=== PATIENT | female | born 1970 | race Caucasian/White ===

== ENCOUNTER 2023-06-11 10:55 | Emergency (ER) | payer BC, SELFPAY ==
[2023-06-11] VITALS (12 sets, daily range): BP systolic 133; BP diastolic 84; PULSE 51–63; RESP 13–20; TEMP 36.4; O2SAT 98; BMI 23.4
--- NOTE | 2023-06-11 11:17 | ECG_ITS ---
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
--- NOTE | 2023-06-11 11:18 | ED.GENADUL1 ---
HPI - General Adult General Chief complaint: Neuro Symptoms/Deficit Stated complaint: NUMBNESS IN LEFT ARM, FATIGUE Time Seen by Provider: 06/11/23 11:12 Source: patient Mode of arrival: walk-in Limitations: no limitations History of Present Illness HPI narrative: 52-year-old female presented for left arm pain. She's been fatigued for the last week and then beginning this morning she had a tightness in her left upper arm like when she has a tourniquet on it. No injury and she doesn't have any weakness. No chest pain or pressure. No back pain or shortness of breath. She has no personal history of heart disease but it runs in her family. Related Data Home Medications Medication Instructions Recorded Confirmed No Known Home Medications 06/11/23 06/11/23 Allergies Allergy/AdvReac Type Severity Reaction Status Date / Time Penicillins Allergy Severe Verified 06/11/23 11:07 avalox Allergy Severe Vomiting Uncoded 06/11/23 11:08 Review of Systems ROS Narrative A ten point review of systems is negative except as noted above. PFSH PFS Social History Smoking status: Never smoker Exam Narrative Exam Narrative: Nurses note and vital signs reviewed and patient is not hypoxic. General: The patient appears well and in no apparent distress. Patient is resting comfortably on cart. Skin: Warm, dry, no pallor noted. There is no rash noted. Head: Normocephalic, atraumatic Eye: Normal conjunctiva, no drainage Ears, Nose, Mouth, and Throat: oral mucosa is moist. Nares patent. Cardiovascular: Regular Rate and Rhythm Respiratory: Patient is in no distress, no accessory muscle use, lungs are clear to auscultation, no wheezing, rales or rhonchi Back: non-tender GI: nontender Musculoskeletal: the left arm is examined. No bruising or swelling or rash. Radial pulse 2+. Hand grasp, biceps, and triceps strength is all intact. Neurological: A&O, normal speech Psychiatric: Cooperative Constitutional Vital Signs, click to edit/add: Last Vital Signs Temp 97.6 F 06/11/23 11:04 Resp 16 06/11/23 11:04 BP 133/84 06/11/23 11:04 Pulse Ox 98 06/11/23 11:04 O2 Del Method Room Air 06/11/23 11:04 Course Vital Signs Vital signs: Vital Signs Temperature 97.6 F 10/05/23 11:04 Respiratory Rate 16 06/11/23 11:04 Blood Pressure 133/84 06/11/23 11:04 Pulse Oximetry 98 06/11/23 11:04 Oxygen Delivery Method Room Air 06/11/23 11:04 Temperature 97.6 F 06/11/23 11:04 Respiratory Rate 16 06/11/23 11:04 Blood Pressure 133/84 06/11/23 11:04 Pulse Oximetry 98 06/11/23 11:04 Oxygen Delivery Method Room Air 06/11/23 11:04 Medical Decision Making MDM Narrative Medical decision making narrative: EKG shows no acute findings and two troponins are negative. Cause of her arm pain is uncertain. At this point I do not suspect acute coronary syndrome. Treatment diagnosis and follow-up were discussed with the patient. Differential Diagnosis Differential Diagnosis: muscle strain, heart disease, anxiety Lab Data Lab results reviewed: Yes I reviewed the patient's lab results Labs: Lab Results 06/11/23 06/11/23 06/11/23 Range/Units 11:25 11:30 12:25 WBC 6.2 (4.0-11.0) 10^3/uL RBC 4.39 (4.20-5.40) 10^6/uL Hgb 13.9 (12.0-16.0) g/dL Hct 41.6 (36.0-48.0) % MCV 94.8 (81.0-99.0) fL MCH 31.7 (26.7-34.0) pg MCHC 33.4 (29.9-35.2) g/dL RDW 12.6 (11.0-15.0) % Plt Count 246 (150-450) 10^3/uL MPV 9.3 L (9.5-13.5) fL Neut % (Auto) 58.6 (43.0-75.0) % Lymph % (Auto) 30.0 (20.5-60.0) % [facility] % (Auto) 8.3 (1.7-12.0) % Eos % (Auto) 2.1 (0.9-7.0) % Baso % (Auto) 0.8 (0.2-2.0) % Neut # (Auto) 3.6 (1.4-6.5) 10^3/uL Lymph # (Auto) 1.9 (1.2-3.8) 10^3/uL [facility] # (Auto) 0.5 (0.3-0.8) 10^3/uL Eos # (Auto) 0.1 (0.0-0.7) 10^3/uL Baso # (Auto) 0.1 (0.0-0.1) 10^3/uL Abs Immat Gran (auto) 0.01 (0.00-0.03) 10^3/uL Imm/Tot Granulo (auto) 0.2 (0.0-0.5) % PT (9.0-11.6) sec INR APTT (22.3-36.2) sec Sodium 140 (136-145) mmol/L Potassium 3.8 (3.5-5.1) mmol/L Chloride 104 (98-107) mmol/L Carbon Dioxide 28.8 (21.0-32.0) mmol/L Anion Gap 11.0 BUN 20.0 H (7.0-18.0) mg/dL Creatinine 0.73 (0.55-1.02) mg/dL Est GFR ( Amer) >60 (>=60) Est GFR (Non-Af Amer) >60 (>=60) BUN/Creatinine Ratio 27.4 Glucose 94 (74-106) mg/dL Calcium 9.6 (8.5-10.1) mg/dL Troponin I High Sens 4.7 8.5 (4.0-51.3) pg/mL Urine Color Lt. yellow (YELLOW) Urine Clarity Clear (CLEAR) Urine pH 6.0 (5.0-9.0) Ur Specific Sharon 1.015 (1.005-1.025) Urine Protein Negative (NEG/TRACE) mg/dL Urine Glucose (UA) Negative (NEGATIVE) mg/dL Urine Ketones Negative (NEGATIVE) mg/dL Urine Occult Blood Negative (NEGATIVE) Urine Nitrite Negative (NEGATIVE) Urine Bilirubin Negative (NEGATIVE) Urine Urobilinogen 0.2 (0.2-1.0) EU/dL Ur Leukocyte Esterase Negative (NEGATIVE) Urine RBC None seen (0-2) #/HPF Urine WBC None seen (NONE SEEN) #/HPF Ur Squamous Epith Cells Rare (NONE/RARE) #/LPF Urine Crystals None seen (None Seen) #/HPF Urine Bacteria None seen (NONE SEEN) #/HPF Urine Casts None seen (NONE SEEN) #/LPF Urine Mucus None seen (NONE SEEN) 06/11/23 Range/Units 12:52 WBC (4.0-11.0) 10^3/uL RBC (4.20-5.40) 10^6/uL Hgb (12.0-16.0) g/dL Hct (36.0-48.0) % MCV (81.0-99.0) fL MCH (26.7-34.0) pg MCHC (29.9-35.2) g/dL RDW (11.0-15.0) % Plt Count (150-450) 10^3/uL MPV (9.5-13.5) fL Neut % (Auto) (43.0-75.0) % Lymph % (Auto) (20.5-60.0) % [facility] % (Auto) (1.7-12.0) % Eos % (Auto) (0.9-7.0) % Baso % (Auto) (0.2-2.0) % Neut # (Auto) (1.4-6.5) 10^3/uL Lymph # (Auto) (1.2-3.8) 10^3/uL [facility] # (Auto) (0.3-0.8) 10^3/uL Eos # (Auto) (0.0-0.7) 10^3/uL Baso # (Auto) (0.0-0.1) 10^3/uL Abs Immat Gran (auto) (0.00-0.03) 10^3/uL Imm/Tot Granulo (auto) (0.0-0.5) % PT 11.4 (9.0-11.6) sec INR 1.08 APTT 32.5 (22.3-36.2) sec Sodium (136-145) mmol/L Potassium (3.5-5.1) mmol/L Chloride (98-107) mmol/L Carbon Dioxide (21.0-32.0) mmol/L Anion Gap BUN (7.0-18.0) mg/dL Creatinine (0.55-1.02) mg/dL Est GFR ( Amer) (>=60) Est GFR (Non-Af Amer) (>=60) BUN/Creatinine Ratio Glucose (74-106) mg/dL Calcium (8.5-10.1) mg/dL Troponin I High Sens (4.0-51.3) pg/mL Urine Color (YELLOW) Urine Clarity (CLEAR) Urine pH (5.0-9.0) Ur Specific Sharon (1.005-1.025) Urine Protein (NEG/TRACE) mg/dL Urine Glucose (UA) (NEGATIVE) mg/dL Urine Ketones (NEGATIVE) mg/dL Urine Occult Blood (NEGATIVE) Urine Nitrite (NEGATIVE) Urine Bilirubin (NEGATIVE) Urine Urobilinogen (0.2-1.0) EU/dL Ur Leukocyte Esterase (NEGATIVE) Urine RBC (0-2) #/HPF Urine WBC (NONE SEEN) #/HPF Ur Squamous Epith Cells (NONE/RARE) #/LPF Urine Crystals (None Seen) #/HPF Urine Bacteria (NONE SEEN) #/HPF Urine Casts (NONE SEEN) #/LPF Urine Mucus (NONE SEEN) Imaging Data Chest x-ray: Radiologist's impression: Procedure: XR chest 1V EXAM: XR chest 1V at 1205 hours HISTORY: arm and chest pain COMPARISON: 10/04/2013 TECHNIQUE: AP upright portable chest x-ray FINDINGS: The heart is not enlarged and the vasculature is not distended. No acute infiltrate, effusion or pneumothorax is identified. The osseous structures are grossly intact. IMPRESSION: No acute infiltrate or evidence of cardiac decompensation. The overall appearance of the chest is unchanged. Electronically authenticated by: NANCY HYMAN Date: 06/11/2023 12:24 Discharge Plan Discharge Chief Complaint: Neuro Symptoms/Deficit Clinical Impression: Arm pain, left Patient Disposition: Home, Self-Care Time of Disposition Decision: 14:01 Condition: Good Mode of Transportation: Private Vehicle Prescriptions / Home Meds: No Action No Known Home Medications Instructions: Arm Pain (ED) Stand Alone Forms: Portal Instructions Referrals: CLEVELAND MORIN APRN [Primary Care Provider] - 1 week
[2023-06-11 11:39] LABS: Basophils Absolute Auto 0.1 10^3/uL (0.0-0.1); Basophils Percent Auto 0.8 % (0.2-2.0); Eosinophils Absolute Auto 0.1 10^3/uL (0.0-0.7); Eosinophils Percent Auto 2.1 % (0.9-7.0); Hematocrit 41.6 % (36.0-48.0); Hemoglobin 13.9 g/dL (12.0-16.0); Immature Granulocytes Abs Auto 0.01 10^3/uL (0.00-0.03); Immature Granulocytes Pct Auto 0.2 % (0.0-0.5); Lymphocytes Absolute Auto 1.9 10^3/uL (1.2-3.8); Mean Corpuscular HGB Conc 33.4 g/dL (29.9-35.2); Mean Corpuscular Hemoglobin 31.7 pg (26.7-34.0); Mean Corpuscular Volume 94.8 fL (81.0-99.0); Mean Platelet Volume 9.3 fL (9.5-13.5); Monocytes Absolute Auto 0.5 10^3/uL (0.3-0.8); Monocytes Percent Auto 8.3 % (1.7-12.0); Neutrophils Absolute Auto 3.6 10^3/uL (1.4-6.5); Neutrophils Percent Auto 58.6 % (43.0-75.0); Platelet Count 246 10^3/uL (150-450); Red Blood Count 4.39 10^6/uL (4.20-5.40); Red Cell Distribution Width 12.6 % (11.0-15.0); White Blood Count 6.2 10^3/uL (4.0-11.0)
[2023-06-11 11:40] LABS: Bilirubin Urine NEGATIVE (NEGATIVE); Blood Urine NEGATIVE (NEGATIVE); Clarity Urine CLEAR (CLEAR); Color Urine LT. YELLOW (YELLOW); Glucose Urine UA NEGATIVE (NEGATIVE); Ketones Urine NEGATIVE (NEGATIVE); Leukocyte Esterase Urine NEGATIVE (NEGATIVE); Nitrite Urine NEGATIVE (NEGATIVE); Protein Urine NEGATIVE (NEG/TRACE); Specific Gravity Urine 1.015 (1.005-1.025); Urobilinogen Urine 0.2 EU/dL (0.2-1.0)
[2023-06-11 11:45] LABS: WBC Urine NONE SEEN #/HPF (NONE SEEN)
[2023-06-11 11:46] LABS: Bacteria Urine NONE SEEN #/HPF (NONE SEEN); Cast Seen? NONE SEEN #/LPF (NONE SEEN); Crystals Seen? None Seen #/HPF (None Seen); Mucus Urine NONE SEEN (NONE SEEN); RBC Urine NONE SEEN #/HPF (0-2); Squamous Epithelial Cell Urine RARE #/LPF (NONE/RARE)
[2023-06-11 12:05] LABS: Carbon Dioxide 28.8 mmol/L (21.0-32.0); Chloride 104 mmol/L (98-107); Potassium 3.8 mmol/L (3.5-5.1); Sodium 140 mmol/L (136-145)
--- NOTE | 2023-06-11 12:05 | XR_ITS ---
The [address] [address] Patient Name: MANDO LEE MRN: [id number] date: 1970 Sex: F Assigned Patient Location: ER Current Patient Location: ER Accession/Order Number: [id number] Exam Date: 06/11/2023 12:00 Report Date: 06/11/2023 12:24 At the request of: RAHEEM MIGUEL Procedure: XR chest 1V EXAM: XR chest 1V at 1205 hours HISTORY: arm and chest pain COMPARISON: 10/04/2013 TECHNIQUE: AP upright portable chest x-ray FINDINGS: The heart is not enlarged and the vasculature is not distended. No acute infiltrate, effusion or pneumothorax is identified. The osseous structures are grossly intact. XR/XR chest 1V IMPRESSION: No acute infiltrate or evidence of cardiac decompensation. The overall appearance of the chest is unchanged. Electronically authenticated by: NANCY HYMAN Date: 06/11/2023 12:24
[2023-06-11 12:06] LABS: BUN Creatinine Ratio 27.4; Calcium 9.6 mg/dL (8.5-10.1); Estimated GFR (African America >60 (>=60); Estimated GFR (Non-African Ame >60 (>=60); Glucose 94 mg/dL (74-106); Troponin I High Sensitivity 4.7 pg/mL (4.0-51.3)
[2023-06-11 13:20] LABS: INR 1.08; Partial Thromboplastin Time 32.5 sec (22.3-36.2); Prothrombin Time 11.4 sec (9.0-11.6)
[2023-06-11 13:34] LABS: Troponin I High Sensitivity 8.5 pg/mL (4.0-51.3)
== END 2023-06-11 14:19 | disposition home or self-care (01) ==
PROVIDERS: Emergency Provider Emergency Medicine; PCP Nurse Practitioner Primary Care
DX: M79.602 Pain in left arm (principal)
CPT/HCPCS: 36415; 71045; 80048; 81001; 84484; 85025; 85610; 85730; 93005; 99285

== ENCOUNTER 2023-06-12 09:21 | Outpatient (OUT) | payer BC, SELFPAY ==
[2023-06-12 10:21] LABS: Basophils Percent Auto 0.7 % (0.2-2.0); Eosinophils Absolute Auto 0.1 10^3/uL (0.0-0.7); Eosinophils Percent Auto 2.1 % (0.9-7.0); Hematocrit 40.9 % (36.0-48.0); Hemoglobin 13.3 g/dL (12.0-16.0); Immature Granulocytes Abs Auto 0.01 10^3/uL (0.00-0.03); Immature Granulocytes Pct Auto 0.2 % (0.0-0.5); Lymphocytes Absolute Auto 1.3 10^3/uL (1.2-3.8); Lymphocytes Percent Auto 22.9 % (20.5-60.0); Mean Corpuscular HGB Conc 32.5 g/dL (29.9-35.2); Mean Corpuscular Hemoglobin 31.1 pg (26.7-34.0); Mean Corpuscular Volume 95.8 fL (81.0-99.0); Mean Platelet Volume 9.6 fL (9.5-13.5); Monocytes Absolute Auto 0.4 10^3/uL (0.3-0.8); Monocytes Percent Auto 7.2 % (1.7-12.0); Neutrophils Absolute Auto 3.8 10^3/uL (1.4-6.5); Neutrophils Percent Auto 66.9 % (43.0-75.0); Platelet Count 264 10^3/uL (150-450); Red Blood Count 4.27 10^6/uL (4.20-5.40); Red Cell Distribution Width 12.6 % (11.0-15.0); White Blood Count 5.7 10^3/uL (4.0-11.0)
[2023-06-12 10:32] LABS: Alanine Aminotransferase 35 U/L (14-59); Albumin Level 3.6 g/dL (3.4-5.0); Alkaline Phosphatase 95 U/L (46-116); Anion Gap 9.6; Aspartate Amino Transferase 26 U/L (15-37); BUN Creatinine Ratio 22.6; Bilirubin Total 0.6 mg/dL (0.2-1.0); Calcium 9.2 mg/dL (8.5-10.1); Carbon Dioxide 31.2 mmol/L (21.0-32.0); Chloride 105 mmol/L (98-107); Estimated GFR (African America >60 (>=60); Estimated GFR (Non-African Ame >60 (>=60); Globulin 3.5 g/dL; Glucose 88 mg/dL (74-106); Potassium 3.8 mmol/L (3.5-5.1); Sodium 142 mmol/L (136-145); Thyroid Stimulating Hormone 1.302 uIU/mL (0.358-3.740); Total Protein 7.1 g/dL (6.4-8.2)
[2023-06-12 10:44] LABS: Erythrocyte Sedimentation Rate 17 mm/hr (<=30)
[2023-06-13 04:07] LABS: HCV Ab Non Reactive (Non Reactive); HIV Ab/p24 Ag Screen Non Reactive (Non Reactive)
== END 2023-06-12 09:22 | disposition home or self-care (01) ==
LOC: LAB 09:22
PROVIDERS: PCP Nurse Practitioner Primary Care; Visit Provider Nurse Practitioner Primary Care
DX: R53.83 Other fatigue (principal); Z11.59 Encounter for screening for other viral diseases; Z11.4 Encounter for screening for human immunodeficiency virus [HIV]
CPT/HCPCS: 36415; 80053; 82607; 82746; 84443; 85025; 85652; 86803; 87389

== ENCOUNTER 2024-01-21 09:14 | Outpatient (OUT) | payer BC, SELFPAY ==
[2024-01-21 10:13] LABS: Hematocrit 40.5 % (36.0-48.0); Hemoglobin 13.2 g/dL (12.0-16.0); Mean Corpuscular HGB Conc 32.6 g/dL (29.9-35.2); Mean Corpuscular Hemoglobin 30.3 pg (26.7-34.0); Mean Corpuscular Volume 93.1 fL (81.0-99.0); Mean Platelet Volume 9.5 fL (9.5-13.5); Platelet Count 225 10^3/uL (150-450); Red Blood Count 4.35 10^6/uL (4.20-5.40); Red Cell Distribution Width 12.7 % (11.0-15.0); White Blood Count 6.2 10^3/uL (4.0-11.0)
[2024-01-21 10:38] LABS: Percent Iron Saturation 45.6 %
[2024-01-21 10:46] LABS: Alanine Aminotransferase 25 U/L (14-59); Albumin Level 3.6 g/dL (3.4-5.0); Alkaline Phosphatase 96 U/L (46-116); Anion Gap 10.4; Aspartate Amino Transferase 16 U/L (15-37); BUN Creatinine Ratio 19.8; Bilirubin Total 0.7 mg/dL (0.2-1.0); Calcium 8.9 mg/dL (8.5-10.1); Carbon Dioxide 29.6 mmol/L (21.0-32.0); Chloride 104 mmol/L (98-107); Estimated GFR (African America >60 (>=60); Estimated GFR (Non-African Ame >60 (>=60); Globulin 3.7 g/dL; Glucose 90 mg/dL (74-106); Sodium 140 mmol/L (136-145); TSH W/ REFLEX FT4 1.666 uIU/mL (0.358-3.740); Total Protein 7.3 g/dL (6.4-8.2)
== END 2024-01-21 09:15 | disposition home or self-care (01) ==
LOC: LAB 09:17
PROVIDERS: PCP Nurse Practitioner; Visit Provider Nurse Practitioner
DX: R52 Pain, unspecified (principal); R53.83 Other fatigue
CPT/HCPCS: 36415; 80053; 83540; 83550; 84443; 85027

== ENCOUNTER 2024-01-29 06:58 | Outpatient (OUT) | payer BC, SELFPAY ==
--- NOTE | 2024-01-29 | MM_ITS ---
Patient Name: MANDO LEE MR#: [id number] : 1970 Exam Date: 01/29/2024 Ordering Doctor: Noreen Staton RADIOLOGY REPORT PROCEDURE: MM TOMOSYNTHESIS SCREENING BI COMPARISON: MG MAMM SCREEN 3D NILA CAD, 12/12/2022. MG MAMM SCREEN NILA W CAD, 10/28/2018. MG MAMM SCREEN NILA W CAD, 02/03/2017. MAMMO NILA SCREEN, 01/02/2016. INDICATIONS: Nila Screening Mammogram Calculator Name NCI Breast Cancer Risk Assessment Tool 5 Year Breast Cancer Risk 2.30% Lifetime Breast Cancer Risk 15.50% Personal Breast Cancer No Personal Ovarian Cancer No Treatments None Family Cancers Mother with breast cancer at age 68; Mother with uterine cancer at age 24. LOCATION: [facility] BREAST COMPOSITION: The breasts are heterogeneously dense,which may obscure small masses. FINDINGS: DIAGNOSTIC CATEGORY 1--NEGATIVE. RIGHT BREAST: No significant suspicious finding. No significant change has occurred. LEFT BREAST: No significant suspicious finding. No significant change has occurred. RECOMMENDATIONS: ROUTINE MAMMOGRAM AND CLINICAL EVALUATION IN 12 MONTHS. PLEASE NOTE: A NORMAL MAMMOGRAM DOES NOT EXCLUDE THE POSSIBILITY OF BREAST CANCER. A CLINICALLY SUSPICIOUS PALPABLE LUMP SHOULD BE BIOPSIED. Dictated by: Jefry Oviedo M.D. on 01/29/2024 at 08:08 Approved by: Jefry Oviedo M.D. on 01/29/2024 at 08:34
--- OUTSIDE RECORDS SUMMARY | 2024-01-29 07:02 | XMS_ITS | CCD ---
Author Organization [facility] CliniSymn Care Team Providers Care Heeler Machine Name Role Phone JJ, DOCTOR Admitting Unavailable MISC, DR RODRIGUEZ Attending Unavailable MISC, DR RODRIGUEZ Consulting Unavailable Jefry Oviedo Consulting Unavailable Problems Problem Classification Problem Date Documented Da te Episodic/Chronic Other screening for suspected conditions (not mental disorders or infectious disease) (4 sources) Encounter for screening mammogram for malignant neoplasm of breast; Translations: [ENC SCR MAMMO MALIG NEOPLASM BREAST] Onset: 12-12-2022 Episodic Residual codes; unclassified (1 source) Family history of malignant neoplasm of breast; Translations: [FAMILY HX MALIG NEOPLASM OF BREAST] Onset: 12-21-2022 Episodic Residual codes; unclassified (1 source) Family history of malignant neoplasm of other organs or systems; Translations: [FAM HX MALIG NEOPLASM OTH ORGN/SYS] Onset: 12-21-2022 Episodic Results Test Name Value Interpretation Reference Range Facil ity MG MAMM SCREEN 3D NILA CADon 12-12-2022 MG MAMM SCREEN 3D NILA CAD Patient: MANDO LEE. Exam Date: 12/12/2022 : 1970 Gender:F Ordering : GLORIA VILLEDA D.O. Admission #: [id number] Family : Order #: [id number] CLICK HERE TO VIEW EXAM RADIOLOGY REPORT PROCEDURE: MAMMOGRAM SCREENING 3D BILATERAL CAD COMPARISON: MG MAMM SCREEN NILA W CAD, 02/03/2017. MG MAMM SCREEN NILA W CAD, 01/02/2016. MG MAMM SCREEN NILA W CAD, 04/02/2013. MG MAMM SCREEN NILA W CAD, 10/28/2018. INDICATIONS: Screening mammography Calculator Name NCI Breast Cancer Risk Assessment Tool 5 Year Breast Cancer Risk 2.20% Lifetime Breast Cancer Risk 15.80% Personal Breast Cancer No Personal Ovarian Cancer No Treatments None Family Cancers Mother with breast cancer at age 68; Mother with uterine cancer at age 24. LOCATION: [facility] BREAST COMPOSITION: Heterogeneously dense,which may obscure small masses. FINDINGS: DIAGNOSTIC CATEGORY 1--NEGATIVE. RIGHT BREAST: No significant suspicious finding. No significant change has occurred. LEFT BREAST: No significant suspicious finding. No significant change has occurred. RECOMMENDATIONS: ROUTINE MAMMOGRAM AND CLINICAL EVALUATION IN 12 MONTHS. PLEASE NOTE: A NORMAL MAMMOGRAM DOES NOT EXCLUDE THE POSSIBILITY OF BREAST CANCER. A CLINICALLY SUSPICIOUS PALPABLE LUMP SHOULD BE BIOPSIED. Dictated by: Jefry Oviedo M.D. on 12/12/2022 at 12:30 Approved by: Jefry Oviedo M.D. on 12/12/2022 at 12:56 Normal [facility] Complete Blood Counton 10-14 Erythrocyte distribution width (RBC) [Ratio] 13.0 % Normal 11.0-15.0 [facility] Pulper Operator Comment on above: Performed By: #### C BC, CMP, LIPD #### [facility] [address] [place], [place] [id number] Hematocrit (Bld) [Volume fraction] 41.4 % Normal 35.0-47.0 [facility] Specialist Comment on above: Performed By: #### C BC, CMP, LIPD #### [facility] [address], [place] [id number] Hemoglobin (Bld) [Mass/Vol] 13.6 g/dL Normal 11.6-15.5 [facility] Comment on above: Performed By: #### C BC, CMP, LIPD #### [facility] [address] [place], [place] [id number] MCH (RBC) [Entitic mass] 30.6 pg Normal 27.0-33.0 [facility] Comment on above: Performed By: #### C BC, CMP, LIPD #### [facility] [address] [facility] [place] [id number] MCHC (RBC) [Mass/Vol] 32.9 g/dL Normal 32.0-36.0 [facility] Pulper Operator Comment on above: Performed By: #### C BC, CMP, LIPD #### [facility] [address], [place] [id number] MCV (RBC) [Entitic vol] 93 fL Normal 80-100 [place] Pulper Operator Comment on above: Performed By: #### C BC, CMP, LIPD #### [facility] [address], [place] [id number] Platelet mean volume (Bld) [Entitic vol] 9.90 fL Normal 7.50-12.50 [facility] Pulper Operator Comment on above: Performed By: #### C BC, CMP, LIPD #### [facility] [address] [place], [place] [id number] Platelets (Bld) [#/Vol] 229 10*3/uL Normal 140-400 [facility] Pulper Operator Comment on above: Performed By: #### C BC, CMP, LIPD #### [facility] [address] [place], [place] [id number] RBC (Bld) [#/Vol] 4.45 10*6/uL Normal 3.90-5.20 [facility] Pulper Operator Comment on above: Performed By: #### C BC, CMP, LIPD #### [facility] [address] [place], [place] [id number] RDW-SD 44.5 fL Normal 37.0-50.0 [facility] Pulper Operator Comment on above: Performed By: #### C BC, CMP, LIPD #### [facility] [address] [place], [place] [id number] WBC (Bld) [#/Vol] 6.5 10*3/uL Normal 3.8-11.0 [facility] Pulper Operator Comment on above: Performed By: #### C BC, CMP, LIPD #### [facility] [address], [place] [id number] Comprehensive Metabolic [facility]ane [facility] 10-14-2021 Albumin [Mass/Vol] 4.6 g/dL Normal 3.6-5.1 [facility] Pulper Operator Comment on above: Performed By: #### C BC, CMP, LIPD #### [facility] [address] [place], [place] [id number] Albumin/Globulin [Mass ratio] 2.2 {ratio} Normal 1.0-2.5 [facility] Pulper Operator Comment on above: Performed By: #### C BC, CMP, LIPD #### [facility] [address] [place] [id number] ALP [Catalytic activity/Vol] 101 U/L Normal 35-119 [facility] Comment on above: Performed By: #### C BC, CMP, LIPD #### [facility] [address] [place], [place] [id number] ALT [Catalytic activity/Vol] 45 U/L High 6-33 [facility] Comment on above: Result Comment: 08/07 Female reference range changed. Performed By: #### C BC, CMP, LIPD #### [facility] [address] [facility] [place] [id number] Anion gap [Moles/Vol] 16 mmol/L Normal 12-20 [facility] Comment on above: Result Comment: Effe ctive 09/12/2019 reference range changed. Performed By: #### C BC, CMP, LIPD #### [facility] [address] [facility] [place] [id number] AST [Catalytic activity/Vol] 36 U/L High 9-34 [facility] Comment on above: Performed By: #### C BC, CMP, LIPD #### [facility] [address] [facility] [place] [id number] Bilirubin [Mass/Vol] 0.50 mg/dL Normal 0.30-1.20 [facility] Comment on above: Performed By: #### C BC, CMP, LIPD #### [facility] [address] [facility] [place] [id number] BUN/CREA 20 Ratio Normal 6-22 [facility] Comment on above: Performed By: #### C BC, CMP, LIPD #### [facility] [address] [facility] [place] [id number] Calcium [Mass/Vol] 9.8 mg/dL Normal 8.6-10.2 [facility] Comment on above: Performed By: #### C BC, CMP, LIPD #### [facility] [address] [facility] [place] [id number] Chloride [Moles/Vol] 105 mmol/L Normal 98-107 [facility] Comment on above: Performed By: #### C BC, CMP, LIPD #### [facility] [address] [place], [place] [id number] CO2 [Moles/Vol] 27 mmol/L Normal 20-31 [facility] Pulper Operator Comment on above: Performed By: #### C BC, CMP, LIPD #### [facility] [address], [place] [id number] Creatinine [Mass/Vol] 0.7 mg/dL Normal 0.6-1.4 [facility] Pulper Operator Comment on above: Performed By: #### C BC, CMP, LIPD #### [facility] [address] [place], [place] [id number] eGFRAA 108 mL/min/1.73m2 Normal >60 [facility] Specialist Comment on above: Performed By: #### C BC, CMP, LIPD #### [facility] [address], [place] [id number] eGFRNAA 89 mL/min/1.73m2 Normal >60 [facility] Pulper Operator Comment on above: Performed By: #### C BC, CMP, LIPD #### [facility] [address] [place], [place] [id number] Globulin (S) [Mass/Vol] 2.1 g/dL Normal 1.9-3.7 [facility] Pulper Operator Comment on above: Performed By: #### C BC, CMP, LIPD #### [facility] [address] [place], [place] [id number] Glucose [Mass/Vol] 92 mg/dL Normal 65-99 [facility] Pulper Operator Comment on above: Result Comment: For FASTING Glucose --- ADA reference ranges: Normal 65-99 mg/dl Prediabetes 100-125 Diabetes >/= 126 Performed By: #### C BC, CMP, LIPD #### [facility] [address] [place], [place] [id number] Potassium [Moles/Vol] 4.3 mmol/L Normal 3.5-5.5 [facility] Pulper Operator Comment on above: Performed By: #### C BC, CMP, LIPD #### [facility] [address] [place] [address], [place] [id number] Protein [Mass/Vol] 6.7 g/dL Normal 6.1-8.1 [facility] Pulper Operator Comment on above: Performed By: #### C BC, CMP, LIPD #### [facility] [address] [place], [place] [id number] Sodium [Moles/Vol] 144 mmol/L Normal 135-146 J Carlos matos [place] Pulper Operator Comment on above: Performed By: #### C BC, CMP, LIPD #### [facility] [address] [place], [place] [id number] Urea nitrogen [Mass/Vol] 14 mg/dL Normal 7-25 [facility] Pulper Operator Comment on above: Performed By: #### C BC, CMP, LIPD #### [facility] [address] [place], [place] [id number] Lipid Panelon 10-14-2021 Cholesterol [Mass/Vol] 228 mg/dL High 125-200 [facility] Pulper Operator Comment on above: Result Comment: Low risk < 200mg/dL Borderline risk 201-239 mg/dl High risk > or equal to 240 Performed By: #### C BC, CMP, LIPD #### [facility] [address] [facility] [place] [id number] Cholesterol in HDL [Mass/Vol] 97 mg/dL Normal >40 [facility] Pulper Operator Comment on above: Result Comment: High Cardiovascular Risk HDL <40 mg/dL Low Cardiovascular Risk HDL > or equal to 60 mg/dl Performed By: #### C BC, CMP, LIPD #### [facility] [address] [place], [place] [id number] Cholesterol in LDL [Mass/Vol] 113 mg/dL Normal [facility] Pulper Operator Comment on above: Result Comment: LDL ATP III CLASSIFICATION LDL less than 100 mg/dl Optimal LDL 100-129 mg/dl Near or above optimal LDL 130-159 Borderline high LDL 160-189 High LDL greater than 189 mg/dl Very High Performed By: #### C BC, CMP, LIPD #### [facility] [address] [place] [id number] Cholesterol in VLDL [Mass/Vol] 18 mg/dL Normal [facility] Pulper Operator Comment on above: Performed By: #### C BC, CMP, LIPD #### [facility] [address] [place], [place] [id number] Cholesterol.total/C holesterol in HDL [Mass ratio] 2 {ratio} Normal [facility] Pulper Operator Comment on above: Performed By: #### C BC, CMP, LIPD #### [facility] [address] [place], [place] [id number] Triglyceride [Mass/Vol] 90 mg/dL Normal 30-150 [facility] Pulper Operator Comment on above: Result Comment: TRIG ATPIII CLASSIFICATIONS TRIG less than 150 mg/dl Normal TRIG 150-199 mg/dl Borderline High TRIG 200-500 mg/dl High TRIG greather than 500 mg/dl Very High Performed By: #### C BC, CMP, LIPD #### [facility] [address] [place], [place] [id number] Encounters Encounter Date Encounter Type Care Provider Facility Start: 12-12-2022 End: 12-13-[address] RODRIGUEZ [facility] Facility: Payers Date Payer Category Payer Unknown [id number] 1961 Unknown [id number] Summary Purpose Family History No Family History Records FoundNo Family History Records Found Advance Directives No Advanced Directives Records FoundNo Advanced Directives Records Found Additional Source Comments INFORMATION SOURCE (unrecogn ized section and content) DATE CREATED AUTHOR 10/15/2021 [facility] dical Specialist DATE CREATED AUTHOR AUTHOR'S ORGANIZ ATSAMRA [facility]20[facility] RECORDS PERTAINING TO PATIENTS WHO ARE OR HAVE BEEN ENROLLED IN A CHEMICAL DEPENDENCY/SUBSTANCEABUSE PROGRAM, SOME INFORMATION MAY BE OMITTED. This clinical summary was aggregated from multiple sources. Caution should be exercised in using it in the provision of clinical care. This summary normalizes information from multiple sources, and as a consequence, information in this document may materially change the coding, format and clinical context of patient data. In addition, data may be omitted in some cases. CLINICAL DECISIONS SHOULD BE BASED ON THE PRIMARY CLINICAL RECORDS. [employer] provides no warranty or guarantee of the accuracy or completeness of information in this document.
== END 2024-01-29 06:59 | disposition home or self-care (01) ==
LOC: MAMMO 06:59
PROVIDERS: PCP Nurse Practitioner; Visit Provider Nurse Practitioner
DX: Z12.31 Encounter for screening mammogram for malignant neoplasm of breast (principal); Z80.3 Family history of malignant neoplasm of breast; Z80.8 Family history of malignant neoplasm of other organs or systems
CPT/HCPCS: 77063; 77067

== ENCOUNTER 2024-02-21 15:07 | Emergency (ER) | payer OTHER, SELFPAY ==
[2024-02-21 15:17] VITALS: BP 145/82; PULSE 67; TEMP 36.7; O2SAT 98; BMI 23.9
--- NOTE | 2024-02-21 15:22 | XR_ITS ---
The [address] [address] Patient Name: MANDO LEE MRN: [id number] date: 1970 Sex: F Assigned Patient Location: ED.MAIN Current Patient Location: Accession/Order Number: [id number] Exam Date: 02/21/2024 16:09 Report Date: 02/21/2024 17:48 At the request of: SERA MARISCAL Procedure: XR foot LT min 3V EXAM: XR foot LT min 3V HISTORY: pain metatarsal. Crush injury from metal tool box COMPARISON: None. TECHNIQUE: AP, oblique, lateral x-ray left foot. FINDINGS: Negative for fracture or joint abnormality. No foreign body. Sclerotic density distal phalanx great toe likely incidental benign bone island. Visualized ankle unremarkable. XR/XR foot LT min 3V IMPRESSION: Negative for fracture. Electronically authenticated by: KELLE ZEPEDA Date: 02/21/2024 17:48
--- NOTE | 2024-02-21 15:23 | ED.LOWEXI1 ---
HPI HPI - Extremity Injury (Lower) General Chief Complaint: Extremity Injury, Lower Stated Complaint: LT LOWER EXTREMETY INJURY Time Seen by Provider: 02/21/24 15:19 Source: patient Mode of arrival: walk-in Limitations: no limitations History of Present Illness HPI Narrative: Patient is a 53-year-old female presents to the ER for evaluation of left foot pain. Patient reports mild to moderate pain across the metatarsals of her foot. Patient states she was at work at [employer], loading 100 pound stand up toolbox into a truck when it came back out of the truck stood up on and and pinched her foot. Not wearing any steel toed shoe. Patient denies pain to her toes but pain is localized to the distal metatarsals diffuse. Patient ambulatory but notes pain. She denies any ankle hu or knee pain. Patient presents to the ER for evaluation. Skin is intact.Was not involved. MD complaint: Reports foot injury (left) Place: Reports work Severity: moderate Relieving factors: Reports rest Related Data Home Medications ?Medication ?Instructions ?Recorded ?Confirmed No Known Home Medications 06/11/23 06/11/23 Allergies Allergy/AdvReac Type Severity Reaction Status Date / Time Penicillins Allergy Severe Verified 02/21/24 15:17 avalox Allergy Severe Vomiting Uncoded 02/21/24 15:17 Opioid HPI Opioid Management Most Recent Pain and Opioid Data: Last Pain Scale 3 02/21/24 15:27 Review of Systems ROS Constitutional Denies: fever or chills Eyes Denies: change in vision or blurry vision Ears, nose, mouth, and throat Denies: throat pain Cardiovascular Denies: chest pain Respiratory Denies: shortness of breath or cough Gastrointestinal Denies: abdominal pain, nausea or vomiting Musculoskeletal Reports: extremity pain (left foot); Denies: back pain, neck pain or extremity swelling Integumentary/Breast Denies: rash Neurological Denies: headache Psychiatric Denies: anxiety PFSH PFSH Social History Smoking status: Never smoker Exam Narrative Exam Narrative: Vital signs reviewed and nurse's notes. The patient is not hypoxic. General: Alert, no acute distress, patient resting comfortably Skin: warm, intact, no pallor noted, No evidence of skin injury Head: Normocephalic, atraumatic Eye: Normal conjunctiva, no exudates Respiratory: No acute distress, lungs CTA Musculoskeletal: No evidence of deformity to the left foot. no pain to ankle or knee. There is no swelling. There is no ecchymosis. No erythema or warmth noted. DP and PT pulses are intact 2+. Normal sensation, normal capillary refill less than 2 seconds. There is no cyanosis or mottling noted. The patient has tenderness to mid to distal meta-tarsals diffusely. no mid foot tenderness. denies pain to distal toes. nails without injury. There is no pain with calcaneal squeeze, achilles tendon is intact and no defect is palpated. no pain to proximal fibula or calcaneous. The patient has no pelvic instability. The patient has no shortening or rotation noted to the bilateral lower extremities. Neurological: alert and orient x4, normal sensory and motor observed. Psychiatric: Cooperative Constitutional Vital Signs, click to edit/add: Last Vital Signs Temp 98.0 F 02/21/24 15:17 Pulse 67 02/21/24 15:17 Resp 16 02/21/24 15:17 BP 145/82 H 02/21/24 15:17 Pulse Ox 98 02/21/24 15:17 O2 Del Method Room Air 02/21/24 15:17 Course Vital Signs Vital signs: Vital Signs Temperature 98.0 F 02/21/24 15:17 Pulse Rate 67 02/21/24 15:17 Respiratory Rate 16 02/21/24 15:17 Blood Pressure 145/82 H 02/21/24 15:17 Pulse Oximetry 98 02/21/24 15:17 Oxygen Delivery Method Room Air 02/21/24 15:17 Temperature 98.0 F 02/21/24 15:17 Pulse Rate 67 02/21/24 15:17 Respiratory Rate 16 02/21/24 15:17 Blood Pressure 145/82 H 02/21/24 15:17 Pulse Oximetry 98 02/21/24 15:17 Oxygen Delivery Method Room Air 02/21/24 15:17 MDM - Extremity Injury (Lower) MDM Narrative Medical decision making narrative: Isolated injury to the left foot, no skin injury, patient was wearing tennis shoe. Ice pack applied, patient declined the need for any pain medication. X-ray ordered to rule out fracture. Preliminary review of x-ray without evidence of fracture, discussed possible chondral contusion. Recommend a period of nonweightbearing to toe-touch weightbearing with use of postop shoe, patient will use crutches. She is checking to see if her sister has crutches at home. Recommend follow-up in 3 to 5 days with occupational medicine clinic, patient may need repeat x-rays if elevator tender. We discussed the importance of strict ice and elevation. Patient verbalized understanding. Formal radiologist interpretation is pending. The patient is to followup with occupational medicine clinic in next3-5days or to return to the emergency department should any of the signs or symptoms worsen or new symptoms develop. Patient had questions answered. The patient agrees with the following Diagnosis and Treatment plan and the patient will be discharged home. SHARED APC VISIT, PHYSICIAN ATTESTATION: [id number] I performed a substantive part of the MDM during the patient?s E/M visit. I personally evaluated and examined the patient. I personally made or approved the documented management plan and acknowledge its risk of complications. My (EKG/X-Ray/US/CT) interpretation . Management/test interpretation discussed with . Imaging Data left foot 3 view: Attestation: I personally reviewed and interpreted this imaging study as follows: My impression: No acute fracture, normal alignment. Discharge Plan Discharge Stand Alone Forms: Portal Instructions Chief Complaint: Extremity Injury, Lower Clinical Impression: Contusion of foot, left Patient Disposition: Home, Self-Care Time of Disposition Decision: 16:26 Condition: Good Prescriptions / Home Meds: No Action No Known Home Medications Print Language: Turkmen Instructions: Foot Contusion (ED) Additional Instructions: Recommend crutches, nonweightbearing to toe-touch weightbearing left foot, use postop shoe when ambulating, may remove shoe to sleep. We discussed the need for ice and elevation. Contact occupational medicine clinic on Thursday to discuss follow-up this week for reevaluation. Referrals: [facility] [Outside] - As soon as possible Noreen Staton NP [Primary Care Provider] - 1 week Orville Grewal DPM [Physician] - As needed Procedures ED Ortho Splinting/Casting Orthopedic Splinting/Casting Injury #1: Additional comments: Patient's left foot was placed in a postop shoe, neurovascular intact status post application with good alignment.
--- OUTSIDE RECORDS SUMMARY | 2024-02-21 15:24 | XMS_ITS | CCD ---
Author Organization [facility] Care Team Providers Care Orchard Pruner Name Role Phone JJ, DOCTOR Admitting Unavailable [...] Ordering : GLORIA VILLEDA D.O. Admission #: [id number] Family : Order #: [id number] CLICK HERE TO VIEW EXAM RADIOLOGY REPORT [...] uterine cancer at age 22. LOCATION: [facility] BREAST COMPOSITION: Heterogeneously dense,which may obscure small [...] M.D. on 12/12/2022 at 12:56 Normal [facility] Complete Blood Counton 10-14 Erythrocyte distribution width (RBC) [Ratio] 13.0 % Normal 11.0-15.0 [facility] Operator Helper Comment on above: Performed By: #### C BC, CMP, LIPD #### [facility] [address] [place], [place] [id number] Hematocrit (Bld) [Volume fraction] 41.4 % Normal 35.0-47.0 [facility] Specialist Comment on above: Performed By: #### C BC, CMP, LIPD #### [facility] [address] [place], [place] [id number] Hemoglobin (Bld) [Mass/Vol] 13.6 g/dL Normal 11.6-15.5 [facility] Specialist Comment on above: Performed By: #### C BC, CMP, LIPD #### [facility] [address], [place] [id number] MCH (RBC) [Entitic mass] 30.6 pg Normal 27.0-33.0 [facility] Specialist Comment on above: Performed By: #### C BC, CMP, LIPD #### [facility] [address] [place] [id number] MCHC (RBC) [Mass/Vol] 32.9 g/dL Normal 32.0-36.0 [facility] Operator Helper Comment on above: Performed By: #### C BC, CMP, LIPD #### [facility] [address] [place], [place] [id number] MCV (RBC) [Entitic vol] 93 fL Normal 80-100 [place] Operator Helper Comment on above: Performed By: #### C BC, CMP, LIPD #### [facility] [address] [place], [place] [id number] Platelet mean volume (Bld) [Entitic vol] 9.90 fL Normal 7.50-12.50 [facility] Operator Helper Comment on above: Performed By: #### C BC, CMP, LIPD #### [facility] [address] [place], [place] [id number] Platelets (Bld) [#/Vol] 229 10*3/uL Normal 140-400 [facility] Operator Helper Comment on above: Performed By: #### C BC, CMP, LIPD #### [facility] [address] [place], [place] [id number] RBC (Bld) [#/Vol] 4.45 10*6/uL Normal 3.90-5.20 [facility] Operator Helper Comment on above: Performed By: #### C BC, CMP, LIPD #### [facility] [address] [place], [place] [id number] RDW-SD 44.5 fL Normal 37.0-50.0 [facility] Operator Helper Comment on above: Performed By: #### C BC, CMP, LIPD #### [facility] [address] [place], [place] [id number] WBC (Bld) [#/Vol] 6.5 10*3/uL Normal 3.8-11.0 [facility] Operator Helper Comment on above: Performed By: #### C BC, CMP, LIPD #### [facility] [address] [place], [place] [id number] Comprehensive Metabolic Pane [facility] 10-14-2021 Albumin [Mass/Vol] 4.6 g/dL Normal 3.6-5.1 [facility] Operator Helper Comment on above: Performed By: #### C BC, CMP, LIPD #### [facility] [address] [place], [place] [id number] Albumin/Globulin [Mass ratio] 2.2 {ratio} Normal 1.0-2.5 [facility] Operator Helper Comment on above: Performed By: #### C BC, CMP, LIPD #### [facility] [address] [place] [id number] ALP [Catalytic activity/Vol] 101 U/L Normal 35-119 [facility] Specialist Comment on above: Performed By: #### C BC, CMP, LIPD #### [facility] [address] [place] [id number] ALT [Catalytic activity/Vol] 45 U/L High 6-33 [facility] Specialist Comment on above: Result Comment: 08/07 Female reference range changed. Performed By: #### C BC, CMP, LIPD #### [facility] [address] [facility] [place] [id number] Anion gap [Moles/Vol] 16 mmol/L Normal 12-20 [facility] Specialist Comment on above: Result Comment: Effe ctive 09/12/2019 reference range changed. Performed By: #### C BC, CMP, LIPD #### [facility] [address] [facility] [id number] AST [Catalytic activity/Vol] 36 U/L High 9-34 [facility] Specialist Comment on above: Performed By: #### C BC, CMP, LIPD #### [facility] [address] [facility] [id number] Bilirubin [Mass/Vol] 0.50 mg/dL Normal 0.30-1.20 [facility] Specialist Comment on above: Performed By: #### C BC, CMP, LIPD #### [facility] [address] [facility] [place] [id number] BUN/CREA 20 Ratio Normal 6-22 [facility] Specialist Comment on above: Performed By: #### C BC, CMP, LIPD #### [facility] [address] [facility] [facility] [place] [id number] Calcium [Mass/Vol] 9.8 mg/dL Normal 8.6-10.2 [facility] Comment on above: Performed By: #### C BC, CMP, LIPD #### [facility] [address] [facility] [place] [id number] Chloride [Moles/Vol] 105 mmol/L Normal 98-107 [facility] Specialist Comment on above: Performed By: #### C BC, CMP, LIPD #### [facility] [address] [place], [place] [id number] CO2 [Moles/Vol] 27 mmol/L Normal 20-31 [facility] Operator Helper Comment on above: Performed By: #### C BC, CMP, LIPD #### [facility] [address] [place], [place] [id number] Creatinine [Mass/Vol] 0.7 mg/dL Normal 0.6-1.4 [facility] Operator Helper Comment on above: Performed By: #### C BC, CMP, LIPD #### [facility] [address] [place], [place] [id number] eGFRAA 108 mL/min/1.73m2 Normal >60 [facility] Specialist Comment on above: Performed By: #### C BC, CMP, LIPD #### [facility] [address] [place], [place] [id number] eGFRNAA 89 mL/min/1.73m2 Normal >60 [facility] Operator Helper Comment on above: Performed By: #### C BC, CMP, LIPD #### [facility] [address] [place], [place] [id number] Globulin (S) [Mass/Vol] 2.1 g/dL Normal 1.9-3.7 [facility] Helper Comment on above: Performed By: #### C BC, CMP, LIPD #### [facility] [address] [place], [place] [id number] Glucose [Mass/Vol] 92 mg/dL Normal 65-99 [facility] Operator Helper Comment on above: Result Comment: For FASTING Glucose --- ADA reference ranges: Normal 65-99 mg/dl Prediabetes 100-125 Diabetes >/= 126 Performed By: #### C BC, CMP, LIPD #### [facility] [address] [place], [place] [id number] Potassium [Moles/Vol] 4.3 mmol/L Normal 3.5-5.5 [facility] Helper Comment on above: Performed By: #### C BC, CMP, LIPD #### [facility] [address] [place], [place] [id number] Protein [Mass/Vol] 6.7 g/dL Normal 6.1-8.1 [facility] Operator Helper Comment on above: Performed By: #### C BC, CMP, LIPD #### [facility] [address] [place], [place] [id number] Sodium [Moles/Vol] 144 mmol/L Normal 135-146 J Carlos matos [place] Operator Helper Comment on above: Performed By: #### C BC, CMP, LIPD #### [facility] [address] [place], [place] [id number] Urea nitrogen [Mass/Vol] 14 mg/dL Normal 7-25 [facility] Operator Helper Comment on above: Performed By: #### C BC, CMP, LIPD #### [facility] [address] [place], [place] [id number] Lipid Panelon 10-14-2021 Cholesterol [Mass/Vol] 228 mg/dL High 125-200 [facility] Operator Helper Comment on above: Result Comment: Low risk < 200mg/dL Borderline risk 201-239 mg/dl High risk > or equal to 240 Performed By: #### C BC, CMP, LIPD #### [facility] [address] [facility] [place] [place] [id number] Cholesterol in HDL [Mass/Vol] 97 mg/dL Normal >40 [facility] Operator Helper Comment on above: Result Comment: High Cardiovascular Risk HDL <40 mg/dL Low Cardiovascular Risk HDL > or equal to 60 mg/dl Performed By: #### C BC, CMP, LIPD #### [facility] [address] [place], [place] [id number] Cholesterol in LDL [Mass/Vol] 113 mg/dL Normal [facility] Operator Helper Comment on above: Result Comment: LDL ATP III CLASSIFICATION LDL less than 100 mg/dl Optimal LDL 100-129 mg/dl Near or above optimal LDL 130-159 Borderline high LDL 160-189 High LDL greater than 189 mg/dl Very High Performed By: #### C BC, CMP, LIPD #### [facility] [address] [id number] Cholesterol in VLDL [Mass/Vol] 18 mg/dL Normal [facility] Operator Helper Comment on above: Performed By: #### C BC, CMP, LIPD #### [facility] [address] [place], [place] [id number] Cholesterol.total/C holesterol in HDL [Mass ratio] 2 {ratio} Normal [facility] Operator Helper Comment on above: Performed By: #### C BC, CMP, LIPD #### [facility] [address] [place], [place] [id number] Triglyceride [Mass/Vol] 90 mg/dL Normal 30-150 [facility] Operator Helper Comment on above: Result Comment: TRIG ATPIII CLASSIFICATIONS TRIG less than 150 mg/dl Normal TRIG 150-199 mg/dl Borderline High TRIG 200-500 mg/dl High TRIG greather than 500 mg/dl Very High Performed By: #### C BC, CMP, LIPD #### [facility] [address] [place], [place] [id number] Encounters Encounter Date Encounter Type Care Provider Facility Start: 12-12-2022 End: 12-13-[address] [facility] [place] Payers Date Payer Category Payer Unknown [id number] 1961 Unknown [id number] Summary Purpose Family History No Family History Records FoundNo Family History Records Found Advance Directives No Advanced Directives Records FoundNo Advanced Directives Records Found Additional Source Comments INFORMATION SOURCE (unrecogn ized section and content) DATE CREATED AUTHOR 10/15/2021 [facility] dical Specialist DATE CREATED AUTHOR AUTHOR'S ORGANIZ ATSAMRA [facility]2022 [facility] PERTAINING TO PATIENTS WHO [...] BE BASED ON THE PRIMARY CLINICAL RECORDS. [employer] provides no warranty or guarantee of the accuracy or completeness of information in this document.
--- NOTE | 2024-02-21 15:52 | PC.NURSE ---
Per pt. Complaint Operator at [facility], no testing needed for workers Comp.
== END 2024-02-21 16:40 | disposition home or self-care (01) ==
PROVIDERS: Emergency Provider Emergency Medicine; PCP Nurse Practitioner
DX: S90.32XA Contusion of left foot, initial encounter (principal); W22.8XXA Striking against or struck by other objects, initial encounter
CPT/HCPCS: 73630; 99283

== ENCOUNTER 2024-03-02 10:56 | Outpatient (OUT) | payer OTHER, SELFPAY ==
--- NOTE | 2024-03-02 | XR_ITS ---
The [address] [address] Patient Name: MANDO LEE MRN: [id number] date: 1970 Sex: F Assigned Patient Location: RAD Current Patient Location: RAD Accession/Order Number: [id number] Exam Date: 03/02/2024 11:10 Report Date: 03/02/2024 12:05 At the request of: CON WHITE Procedure: XR foot LT min 3V PROCEDURE: XR foot LT min 3V COMPARISON: 02/21/2024 HISTORY: CRUSH INJURY LEFT FOOT FINDINGS: BONES:No acute fracture or dislocation. Focal 1.5 cm sclerosis in the first distal phalanx with a narrow zone of transition and no periosteal reaction, nonspecific but benign-appearing possibly a bone island/enostosis SOFT TISSUES:Negative. No visible soft tissue swelling. EFFUSION:None visible. OTHER: Negative. XR/XR foot LT min 3V IMPRESSION: No acute fracture Electronically authenticated by: CHARLEEN SANTILLAN Date: 03/02/2024 12:05
--- OUTSIDE RECORDS SUMMARY | 2024-03-02 11:11 | XMS_ITS | CCD ---
Author Organization [facility] CliniSyct Care Team Providers Care Websphere Commerce Consultant Name Role Phone JJ, DOCTOR Admitting Unavailable [...] Ordering : GLORIA VILLEDA D.O. Admission #: [id number] Family : Order #: [id number] CLICK HERE TO VIEW EXAM RADIOLOGY REPORT [...] uterine cancer at age 22. LOCATION: [facility] BREAST COMPOSITION: Heterogeneously dense,which may obscure [...] M.D. on 12/12/2022 at 12:56 Normal [facility] Complete Blood Counton 10-14 Erythrocyte distribution width (RBC) [Ratio] 13.0 % Normal 11.0-15.0 [facility] Technical Communication Teacher Comment on above: Performed By: #### C BC, CMP, LIPD #### [facility] [address], [place] [id number] Hematocrit (Bld) [Volume fraction] 41.4 % Normal 35.0-47.0 [facility] Specialist Comment on above: Performed By: #### C BC, CMP, LIPD #### [facility] [address], [place] [id number] Hemoglobin (Bld) [Mass/Vol] 13.6 g/dL Normal 11.6-15.5 [facility] Specialist Comment on above: Performed By: #### C BC, CMP, LIPD #### [facility] [address], [place] [id number] MCH (RBC) [Entitic mass] 30.6 pg Normal 27.0-33.0 [facility] Specialist Comment on above: Performed By: #### C BC, CMP, LIPD #### [facility] [address] [facility] [place] [id number] MCHC (RBC) [Mass/Vol] 32.9 g/dL Normal 32.0-36.0 [facility] Technical Communication Teacher Comment on above: Performed By: #### C BC, CMP, LIPD #### [facility] [address], [place] [id number] MCV (RBC) [Entitic vol] 93 fL Normal 80-100 [place] Technical Communication Teacher Comment on above: Performed By: #### C BC, CMP, LIPD #### [facility] [address], [place] [id number] Platelet mean volume (Bld) [Entitic vol] 9.90 fL Normal 7.50-12.50 [facility] Technical Communication Teacher Comment on above: Performed By: #### C BC, CMP, LIPD #### [facility] [address], [place] [id number] Platelets (Bld) [#/Vol] 229 10*3/uL Normal 140-400 [facility] Technical Communication Teacher Comment on above: Performed By: #### C BC, CMP, LIPD #### [facility] [address], [place] [id number] RBC (Bld) [#/Vol] 4.45 10*6/uL Normal 3.90-5.20 [facility] Technical Communication Teacher Comment on above: Performed By: #### C BC, CMP, LIPD #### [facility] [address], [place] [id number] RDW-SD 44.5 fL Normal 37.0-50.0 [facility] Technical Communication Teacher Comment on above: Performed By: #### C BC, CMP, LIPD #### [facility] [address], [place] [id number] WBC (Bld) [#/Vol] 6.5 10*3/uL Normal 3.8-11.0 [facility] Technical Communication Teacher Comment on above: Performed By: #### C BC, CMP, LIPD #### [facility] [address], [place] [id number] Comprehensive [facility] 10-14-2021 Albumin [Mass/Vol] 4.6 g/dL Normal 3.6-5.1 [facility] Technical Communication Teacher Comment on above: Performed By: #### C BC, CMP, LIPD #### [facility] [address], [place] [id number] Albumin/Globulin [Mass ratio] 2.2 {ratio} Normal 1.0-2.5 [facility] Technical Communication Teacher Comment on above: Performed By: #### C BC, CMP, LIPD #### [facility] [address] [place] [id number] ALP [Catalytic activity/Vol] 101 U/L Normal 35-119 [facility] Specialist Comment on above: Performed By: #### C BC, CMP, LIPD #### [facility] [address] [place] [id number] ALT [Catalytic activity/Vol] 45 U/L High 6-33 [facility] Specialist Comment on above: Result Comment: 08/07 Female reference range changed. Performed By: #### C BC, CMP, LIPD #### [facility] [address] [facility] [place] [id number] Anion gap [Moles/Vol] 16 mmol/L Normal 12-20 [facility] Specialist Comment on above: Result Comment: Effe ctive 09/12/2019 reference range changed. Performed By: #### C BC, CMP, LIPD #### [facility] [address] [facility] [id number] AST [Catalytic activity/Vol] 36 U/L High 9-34 [facility] Specialist Comment on above: Performed By: #### C BC, CMP, LIPD #### [facility] [address] [facility] [place] [id number] Bilirubin [Mass/Vol] 0.50 mg/dL Normal 0.30-1.20 [facility] Specialist Comment on above: Performed By: #### C BC, CMP, LIPD #### [facility] [address] [facility] [place] [id number] BUN/CREA 20 Ratio Normal 6-22 [facility] Specialist Comment on above: Performed By: #### C BC, CMP, LIPD #### [facility] [address] [facility] [facility] [place] [id number] Calcium [Mass/Vol] 9.8 mg/dL Normal 8.6-10.2 [facility] Comment on above: Performed By: #### C BC, CMP, LIPD #### [facility] [address] [facility] [place] [id number] Chloride [Moles/Vol] 105 mmol/L Normal 98-107 [facility] Specialist Comment on above: Performed By: #### C BC, CMP, LIPD #### [facility] [address] [place], [place] [id number] CO2 [Moles/Vol] 27 mmol/L Normal 20-31 [facility] Technical Communication Teacher Comment on above: Performed By: #### C BC, CMP, LIPD #### [facility] [address], [place] [id number] Creatinine [Mass/Vol] 0.7 mg/dL Normal 0.6-1.4 [facility] Technical Communication Teacher Comment on above: Performed By: #### C BC, CMP, LIPD #### [facility] [address], [place] [id number] eGFRAA 108 mL/min/1.73m2 Normal >60 [facility] Specialist Comment on above: Performed By: #### C BC, CMP, LIPD #### [facility] [address], [place] [id number] eGFRNAA 89 mL/min/1.73m2 Normal >60 [facility] Technical Communication Teacher Comment on above: Performed By: #### C BC, CMP, LIPD #### [facility] [address], [place] [id number] Globulin (S) [Mass/Vol] 2.1 g/dL Normal 1.9-3.7 [facility] Technical Communication Teacher Comment on above: Performed By: #### C BC, CMP, LIPD #### [facility] [address], [place] [id number] Glucose [Mass/Vol] 92 mg/dL Normal 65-99 [facility] Technical Communication Teacher Comment on above: Result Comment: For FASTING Glucose --- ADA reference ranges: Normal 65-99 mg/dl Prediabetes 100-125 Diabetes >/= 126 Performed By: #### C BC, CMP, LIPD #### [facility] [address], [place] [id number] Potassium [Moles/Vol] 4.3 mmol/L Normal 3.5-5.5 [facility] Technical Communication Teacher Comment on above: Performed By: #### C BC, CMP, LIPD #### [facility] [address], [place] [id number] Protein [Mass/Vol] 6.7 g/dL Normal 6.1-8.1 [facility] Technical Communication Teacher Comment on above: Performed By: #### C BC, CMP, LIPD #### [facility] [address] [place], [place] [id number] Sodium [Moles/Vol] 144 mmol/L Normal 135-146 J Carlos matos [place] Technical Communication Teacher Comment on above: Performed By: #### C BC, CMP, LIPD #### [facility] [address] [place], [place] [id number] Urea nitrogen [Mass/Vol] 14 mg/dL Normal 7-25 [facility] Technical Communication Teacher Comment on above: Performed By: #### C BC, CMP, LIPD #### [facility] [address] [place], [place] [id number] Lipid Panelon 10-14-2021 Cholesterol [Mass/Vol] 228 mg/dL High 125-200 [facility] Technical Communication Teacher Comment on above: Result Comment: Low risk < 200mg/dL Borderline risk 201-239 mg/dl High risk > or equal to 240 Performed By: #### C BC, CMP, LIPD #### [facility] [address] [facility] [place] [place] [id number] Cholesterol in HDL [Mass/Vol] 97 mg/dL Normal >40 [facility] Technical Communication Teacher Comment on above: Result Comment: High Cardiovascular Risk HDL <40 mg/dL Low Cardiovascular Risk HDL > or equal to 60 mg/dl Performed By: #### C BC, CMP, LIPD #### [facility] [address] [place], [place] [id number] Cholesterol in LDL [Mass/Vol] 113 mg/dL Normal [facility] Technical Communication Teacher Comment on above: Result Comment: LDL ATP III CLASSIFICATION LDL less than 100 mg/dl Optimal LDL 100-129 mg/dl Near or above optimal LDL 130-159 Borderline high LDL 160-189 High LDL greater than 189 mg/dl Very High Performed By: #### C BC, CMP, LIPD #### [facility] [address] [place] [id number] Cholesterol in VLDL [Mass/Vol] 18 mg/dL Normal [facility] Technical Communication Teacher Comment on above: Performed By: #### C BC, CMP, LIPD #### [facility] [address] [place], [place] [id number] Cholesterol.total/C holesterol in HDL [Mass ratio] 2 {ratio} Normal [facility] Technical Communication Teacher Comment on above: Performed By: #### C BC, CMP, LIPD #### [facility] [address], [place] [id number] Triglyceride [Mass/Vol] 90 mg/dL Normal 30-150 [facility] Technical Communication Teacher Comment on above: Result Comment: TRIG ATPIII CLASSIFICATIONS TRIG less than 150 mg/dl Normal TRIG 150-199 mg/dl Borderline High TRIG 200-500 mg/dl High TRIG greather than 500 mg/dl Very High Performed By: #### C BC, CMP, LIPD #### [facility] [address], [place] [id number] Encounters Encounter Date Encounter Type Care Provider Facility Start: 12-12-2022 End: 12-13-[address] [place] [facility] [place] Payers Date Payer Category Payer Unknown [id number] 1961 Unknown [id number] Summary Purpose Family History No Family History Records FoundNo Family History Records Found Advance Directives No Advanced Directives Records FoundNo Advanced Directives Records Found Additional Source Comments INFORMATION SOURCE (unrecogn ized section and content) DATE CREATED AUTHOR 10/15/2021 [facility] dical Specialist DATE CREATED AUTHOR AUTHOR'S ORGANIZ ATSAMRA [facility]2022 [facility] PERTAINING TO PATIENTS WHO [...] BE BASED ON THE PRIMARY CLINICAL RECORDS. [employer] provides no warranty or guarantee of the accuracy or completeness of information in this document.
== END 2024-03-02 10:57 | disposition home or self-care (01) ==
LOC: RAD 10:57
PROVIDERS: PCP Nurse Practitioner; Visit Provider Nurse Practitioner Family
DX: M79.672 Pain in left foot (principal)
CPT/HCPCS: 73630

== ENCOUNTER 2025-01-27 08:54 | Outpatient (OUT) | payer OTHER, SELFPAY ==
--- OUTSIDE RECORDS SUMMARY | 2024-02-08 13:45 | XMS_ITS ---
Author Organization [facility] vices Address [address] [place] [phone] Care Team Providers Care Tandem Operator Name Role Phone Noreen Staton Primary Care Provider [phone] REASON FOR VISIT Wellness Social History Sex Assigned At : Social History Observation Description Sex Assigned At Female Encounters Encounter Location Date Provider Diagnosis [facility] [address] [place] [address] 02/08/2024 Noeren Staton Plan Of Treatment No Information Progress Notes * Rodrick LEEOB: 8 (54 yo F)Acc No.[id number]:02/08/2024 Medical Note Patient: Corrina MONTEZ Provider: Alexandrea Staton :1970 A ge:53 Y S ex:Female Date:02/08/2024 Address:[address] [place], [place] [id number] Subjective: * Chief Complaints: * 1 . Wellness. * Medical History: Objective: * Vitals: Assessment: Plan: * Treatment: * Billing Information: * Visit Code: * Procedure Codes: * Electronic signature of SCOTTY Jasmine on 01/27/2025 at 08:56 AM EDT Sign off status: Pending * Provider: Alexandrea Staton Date: 02/08/2024 Generated for Glory ortiz/Deepika/Harlan on: 01/27/2025 08:56 AM EDT
--- OUTSIDE RECORDS SUMMARY | 2024-02-08 14:00 | XMS_ITS ---
Author Organization [facility] vices Address [address] [place] [phone] Care Team Providers Care Mounter Smoking Pipe Name Role Phone Noreen Staton Primary Care Provider [phone] Bridger Michael Unavailable [phone] REASON FOR VISIT Wellness Social History Sex Assigned At : Social History Observation Description Sex Assigned At Female Encounters Encounter Location Date Provider Diagnosis [facility] [address] [place] [address] 02/08/2024 Bridger Michael Plan Of Treatment No Information Progress Notes * Rodrick LEEOB: 8 (54 yo F)Acc No.[id number]:02/08/2024 Medical Note Patient: Corrina MONTEZ Provider: ABDI Sanders :1970 A ge:53 Y S ex:Female Date:02/08/2024 Address:[address] [place], [place] [id number] Pcp:Noreen Staton Subjective: * Chief Complaints: * 1 . Wellness. * Medical History: Objective: * Vitals: Assessment: Plan: * Treatment: * Billing Information: * Visit Code: * Procedure Codes: * Electronic signature of Uday Michael NP on 01/27/2025 at 08:56 AM EDT Sign off status: Pending * Provider: ABDI Sanders Date: 02/08/2024 Generated for Printi ng/Faxing/eTransmitting on: 01/27/2025 08:56 AM EDT
--- OUTSIDE RECORDS SUMMARY | 2025-01-17 14:52 | XMS_ITS ---
Author Name Auto Generated Organization [facility] Care Team Providers Care Sales Operations Assistant Name Role Phone Bradley Concepcion Jr Attending Unavailable Bradley Concepcion Jr Admitting Unavailable NO FAMILY, PHYSICIAN Primary Care Unavailable NO FAMILY, PHYSICIAN Primary Care Unavailable Chantell Sheriff Attending Unavailable Chantell Sheriff Admitting Unavailable ABDIAZIZ KRUGER Attending Unavailable ABDIAZIZ KRUGER Attending Unavailable ALISHA MAC Attending Unavailable ALISHA MAC Referring Unavailable PROBLEMS DATE TYPE CONDITION / CODE ATT[facility]ING [facility]US [facility] 03/24/2024 Unknown Crushing injury of unspecified foot, initial encounter / S97.80XA(ICD-10) Chantell Sheriff Active [facility] PROCEDURES No Procedure Records Found RESULTS BI MAMMOGRAM SCREENING TOMOSYNTHESIS BILATERAL Observed: 01/17/2025 2:52 PM Status: F Source: [facility] This is a summary report. Th e complete report is available in the patient's medical record. If you cannot access the medical record, please contact the sending organization for a detailed fax or copy. Examination: BI MAMMOGRAM SCREENING TOMOSYNTHESIS BILATERAL Clinical History: screening Technique: Screening digital mammography study of both breasts was performed with 2-D and 3-D tomosynthesis imaging. Study was compared to the prior exam dated 01/29/2024. Findings: There is no evidence of interval dominant spiculated mass, grouped microcalcifications, or skin thickening which would be suggestive of malignancy. A single benign-appearing calcification is seen on the right. IMPRESSION: Impression: No specific evidence of malignancy seen in either breast. BIRADS 2 - Benign Findings DENSITY: The breasts are heterogeneously dense, which may obscure small masses. FOLLOW-UP: Routine Screening Mammogram ELECTRONICALLY SIGNED BY: Austin Solis M.D. CT FOOT LT WO CON Observed: 03/24/2024 10:34 AM Status: COMPLETED Source: [facility] [place] [address] CT Scan Report Signed Patient: Corrina Lee MR#: [id number] : 1970 Acct:[id number] Age/Sex: 53 / F ADM Date: 03/24/24 Loc: CT Room: Type: [facility] Attending Dr: Chantell Sheriff APRN, NP-C Copies to: Cahntell Sheriff APRN, CNP Ordering Provider: Chantell Sheriff APRN, CNP Date of Service: 03/24/24 CT/CT foot LT wo con: S97.80XA CT left foot without contrast TECHNIQUE: The CT exam was performed using one or more the following dose reduction techniques: Automated exposure control, adjustment of the MA and/or Kv according to patient size, or use of the iterative reconstruction technique. COMPARISON: None HISTORY: Left foot injury with continued pain. Swelling. The distal tibia and fibula are intact. Adequate syndesmosis. Ankle mortise adequate. No calcaneal talus fracture. Cuboid and navicular intact. Cuneiform intact. Metatarsals and phalanges intact. Unremarkable soft tissues. A benign sclerotic lesion of the first distal phalanx CT/CT foot LT wo con IMPRESSION: Intact bony structures. Unremarkable soft tissues. Impression dictated by: Elver Cordova M.D.03/24/2024 10:37 AM Dictation Location: [facility]12 Transcribed By: PWS 03/24/24 1037 Dictated By: Elver Cordova DO 03/24/24 1034 Signed By: <Electronically signed by Elver Cordova DO in OV> 03/24/24 1037 BASIC METABOLIC ESTEVEZ W/RFX A1C Collected: 03/17/2024 8 :35 AM Status: F Source: [facility] TYPE CODE TESTS RESULT OUT OF RANGE REFERENCE UNITS LAB EBS GLUCOSE Glucose, Employee SCR 90 Normal 70-100 mg/dL LAB BUN Blood Urea Nitrogen 17 Normal 7-25 mg/dL LAB CREATT Creatinine 0.80 Normal 0.60-1.20 mg/dL LAB GFReNR Estimated GFR > 60.0 LAB NA Sodium 140 Normal 136-145 mmol/L LAB K Potassium 4.0 Normal 3.5-5.1 mmol/L LAB CL Chloride 105 Normal 98-107 mmol/L LAB CO2 Carbon Dioxide 30.5 Normal 21.0-31.0 mmol/L LAB GAP Anion Gap 8.5 Normal 6.0-15.0 LAB CA Calcium 9.7 Normal 8.6-10.3 mg/dL Performed By: #### EMP BMP, EBS LIPID #### [facility] [address] [place] [address] LIPID PROFILE Collected: 03/17/2024 8:35 AM Status: F Source: [facility] TYPE CODE TESTS RESULT OUT OF RANGE REFERENCE UNITS LAB CHOL Cholesterol 260 High 140-200 mg/dL Result Comment: Chol less th an 200 mg/dl low risk Chol 201-239 mg/dl borderline risk Chol 240 mg/dl and greater high risk LAB HDL HDL Cholesterol 88 Normal 23-92 mg/dL Result Comment: HDL CHOL ATP -III CLASSIFICATION Cardiovascular Risk HDL > or equal to 60 mg/dL LOW HDL < 40 mg/dL HIGH LAB TRIG W REFEBS Triglyceride w/Reflex 97 Normal 0-149 mg/dL Result Comment: TRIG ATP III CLASSIFICATION TRIG less than 150 mg/dL Normal TRIG 150-199 mg/dL Borderline high TRIG 200-500 mg/dL High TRIG greater than 500 mg/dL Very high Standard traceable to the Center for Disease Conrtrol and Prevention (CDC) test method. LAB LDLC LDL Cholesterol,Calc ulated 153 High 0-100 mg/dL Result Comment: LDL ATP III CLASSIFICATION LDL less than 100 mg/dL Optimal LDL 100-129 mg/dL Near or above optimal LDL 130-159 mg/dL Borderline high LDL 160-189 mg/dL High LDL greater than 189 mg/dL Very high LAB VLDL VLDL CHOLESTEROL 19 mg/dL LAB CHLHDL Chol/HDL Ratio 3.0 <5.0 Result Comment: PERFORMED BY : [place] [address] PATHOLOGIST PIE MAKER MACHINE FAB GRIDER M.D. Performed By: #### EMP BMP, EBS LIPID #### [address] ALLERGIES No Allergies Records Found ENCOUNTERS ADMIT/DISCHARGE ACCOUNT NUMBER ADMITTING ENCOUNTER CLASS LOCATION SOURCE 01/17/2025/01/18/20 [id number] Ambulatory Building:[facility] 01/02/2025/01/03/20 25 [id number] Ambulatory Building:[facility] 12/14/2024/12/15/19 25 [id number] Ambulatory [facility] 09/12/2024/09/12/19 25 [id number] Ambulatory Building:[facility] 03/24/2024/03/24/20 24 [id number] [facility]antell Sheriff [facility] 03/17/2024/03/17/20 24 [id number] Bradley Concepcion Jr [facility] PAYERS ENCOUNTER GUARANTOR PAYER SUBSCRIBER SOURCE 01/17/2025 CORRINA SCHMIDT: [id number] [place], [place] [address]Psa: (HP) Primary Insurance:MEDICAL MUTUALPolicy Number: [id number] e Date:2024-09-07 CORRINACATHIE LEEDOB: [id number] [place] [address] [facility] EPIC 01/02/2025 CORRINA R JESUSDOB: [place], [place] [address]Ipj: (HP) Primary Insurance:MEDICAL MUTUALPolicy Number: [id number] e Date:2024-09-07 CORRINACATHIE LEEDOB: [id number] [place] [address] [facility] EPIC 12/14/2024 CORRINACATHIE LEEDOB: [place], [place] [address]Zcm: (HP) Primary Insurance:MEDICAL MUTUALPolicy Number: [id number] e Date:2024-09-07 CORRINACATHIE LEEDOB: [id number] [place] [address] [facility] EPIC 09/12/2024 CORRINACATHIE LEEDOB: [place], [place] [address]Zfa: (HP) Primary Insurance:MEDICAL MUTUALPolicy Number: [id number] e Date:2024-09-11 CORRINACATHIE LEEDOB: [id number] [place] [address] [facility] EPIC 03/24/2024 Corrina R [id number] [place] [address]Wlc: (HP) Primary Insurance:[facility] Number: [id number] Date:[id number] [place], [place] [address]SJ: Corrinacathie LeeDOB: [id number] [place] [address]Zfp: (HP) [facility] 03/24/2024 Secondary Insurance:Self PayPolicy Number: Effective Date:2024-03-22 NOT GIVENUNK [facility] 03/17/2024 Corrina [id number] [place] [address]Wte: () Primary Insurance:Self PayPolicy Number: Effective Date:2024-03-07 NOT GIVENUNK [facility]
--- OUTSIDE RECORDS SUMMARY | 2025-01-17 15:00 | XMS_ITS | Encounter Summary ---
Author Organization [facility] Address [address] [place] [address] Care Team Providers Care Route Delivery Manager Name Role Phone Unallocated, Noms Provider Primary Care [facility] Encounter Details Date Type Department Care Team (Latest Contact Info) Description 01/17/2025 3:00 PM EDT Ancillary Procedure [facility] [address] [place] [id number] Breast cancer screening by mammogram Social History Tobacco Use Types Packs/Day Years Used Date Smoking Tobacco: Never Smokeless Tobacco: Never Alcohol Use Standard Drinks/Week Comments Yes 0 (1 standard drink = 0.6 oz pur e alcohol) Caffeine: 1-2 cups/day Comments No Sex and Gender Information Value Date Recorded Sex Assigned at Female 04/05/2023 6:38 PM EDT Legal Sex Female 7:33 PM EDT Gender Identity Female 11/19/2022 7:33 PM EDT Sexual Orientation Straight 04/05/2023 6: 38 PM EDT documented as of this encounter Plan of Treatment Upcoming Encounters Date Type Department Care Team (Late st Contact Info) Description 09/18/2025 6:00 PM EST Office Visit [facility] [address] [place] [id number] Vaishnavi Vidal, CNM [address] [place] [address] documented as of this encounter Procedures Procedure Name Priority Date/Time Associated Diagnosis Comments BI MAMMOGRAM SCREENING TOMOSYNTHESIS BILATERAL Routine 01/17/2025 3:08 PM EDT Breast cancer screening by mammogram documented in this encounter Results * Bilateral screening mammogram with tomosynthesis (01/17/2025 3:08 PM EDT) Anatomical Region Laterality Modality Breast Bilateral Mammography 01/18/2025 1:14 PM EDT Impressions 01/18/2025 1:23 PM EDT Impression: No specific evidence of malignancy seen in either breast. BIRADS 2 - Benign Findings DENSITY: The breasts are heterogeneously dense, which may obscure small masses. FOLLOW-UP: Routine Screening Mammogram ELECTRONICALLY SIGNED BY: Austin Solis M.D. Narrative 01/18/2025 1:23 PM EDT Examination: BI MAMMOGRAM SCREENING TOMOSYNTHESIS BILATERAL Clinical [...] benign-appearing calcification is seen on the right. Procedure Note Austin Solis MD - 01/18/2025 Examination: BI MAMMOGRAM SCREENING TOMOSYNTHESIS BILATERAL Clinical History: screening Technique: Screening digital mammography study of both breasts wasperformed with 2-D and 3-D tomosynthesis imaging. Study was compared tothe prior exam dated 01/29/2024. Findings: There is no evidence of interval dominant spiculated mass,grouped microcalcifications, or skin thickening which would be suggestiveof malignancy. A single benign-appearing calcification is seen on the right. IMPRESSION: Impression: No specific evidence of malignancy seen in either breast. BIRADS 2 - Benign Findings DENSITY: The breasts are heterogeneously dense, which may obscure smallmasses. FOLLOW-UP: Routine Screening Mammogram ELECTRONICALLY SIGNED BY: Austin Solis M.D. Vaishnavi Vidal CNM IMG BI PROCEDURES Final Resu lt documented in this encounter Visit Diagnoses Diagnosis Breast cancer screening by mammogram documented in this encounter Care Teams Route Delivery Manager Relationship Specialty Start Date End Date Unallocated, Noms Provider, [address] [place] [address] PCP - General Family Medicine 12/28/23 documented as of this encounter
--- OUTSIDE RECORDS SUMMARY | 2025-01-27 08:56 | XMS_ITS | Patient Health Record ---
[facility] Organization [facility] Address [address] [place] [id number] Care Team Providers Care Box Sealing Machine Operator Name Role Phone Noreen Staton Primary Care Provider Concetta Bernal Unavailable [phone] Bridger Michael Unavailable [phone] Allergies Allergen (clinical drug ingredient) Drug/Non Drug Allergy documented on EMR Reaction Allergy Type Onset Date Status moxifloxacin Avelox vomiting Drug Allergy Acti ve Results Component Value Reference Range Notes HEPATITIS C AB REFLEX QUANT Reviewed date:02/16/2024 04:24:37 PM Interpretation: Performing Lab: Notes/Report: HEPATITIS C AB NON-REACTIVE NON-REACTIVE [facility] [address] [place] [address] CLIA No. [id number] CAP Accreditation No. [id number] Funeral Prearrangement Counselor: Zully Ricardo M.D. UDS Mammogram Reviewed date:03/25/2024 10:38:37 AM Interpretation: Performing Lab: Notes/Report: Reason For Referral No Information Medications Medication SIG (Take, Route, Frequency, Duration) Notes Start Date End Date Status Calcium + Vitamin D3 500-5 MG-MCG 1 tablet with meals Orally daily Active Fish Oil [place]-3 1000 MG 1 capsule Orall y Once a day for 90 days 02/05/2023 Active Zinc 50 MG 1 tablet Orally Once a day Active Turmeric 500 MG as directed Orally Active Vitamin D3 50 MCG (1999 UT) 1 tablet Orally Once a day A ctive Immunizations Vaccine Route Administration Date Status Comme nts *Tdap (Adacel)-Private Unknown 09/13/2021 Administered *Pfwsbjzco-Pbalpfaol-Bcnss te IM Intramuscular 06/12/2023 Administered Social History Tobacco Use: Social History Observation Description Date Details (start date - stop date) Never Smoker NA - NA Sex Assigned At : Social History Observation Description Sex Assigned At Female Household Question Answer Notes Number of adults in household: 1 Tobacco Use/Smoking Question Answer Notes Tobacco use: nonsmoker patient enter ed data CAGE-AID Questionnaire (2018 Edition) Question Answer Notes Have you ever felt that you ought to cut down on your drinking or drug use? No patient entered data Have people annoyed you by c riticizing your drinking or drug use? No patient entered data Have you ever felt bad or gu ilty about your drinking or drug use? No patient entered data Have you ever had a drink or used drugs first thing in the morning to steady your nerves or to get rid of a hangover? No patient entered data CAGE-AID Score 0 Interpretation Negative PRAPARE Question Answer Notes Date Completed/Updated: 11/13/2023 arden nt entered data What is your current housing situation? I have housing patient entered data Are you worried about losing your housing? No patient entered data What is the highest level of school that you have finished? More than high school patient entered data What is your current work situation? I choose not to answer this question patient entered data In the past year, have you o r any family members you live with been unable to get any of the following when it was really needed? Check all that apply I do not have problems meeting my needs Has lack of transportation k ept you from medical appointments, meetings, work or from getting things needed for daily living? No How often do you see or talk to people that you care about and feel close to? (For example: talking to friends on the phone, visiting friends or family, going to restorationist or club meetings) More than 5 times a week patient entered data How stressed are you? Stress is when someone feels tense, nervous, anxious, or can't sleep at night because their mind is troubled A little bit patient entered data In the past year have you sp ent more than 2 nights in a row in a custodial, retirement, retirement center, or juvenile correctional facility? No patient entered ana a Are you a refugee? No patient en tered data What country are you from? [place] gilmer henderson entered data Do you feel physically and emotionally safe where you currently live? Yes patient entered data In the past year, have you b een afraid of your partner or ex-partner? No patient entered data PRAPARE Score: 1 Problems Problem Type SNOMED Code ICD Code Onset Dates Problem Status W/U Status Risk Notes Problem Hyperlipemia (E78.5) Active confirmed Vital Signs Heart Rate 71 /min 02/15/2024 Carlota Fernandez 02/15/2024 09:09:36 AM EDT > Temperature 98.3 degrees Fahrenheit 02/15/2024 Carlota Terry 02/15/2024 09:09:36 AM EDT > Respiratory Rate 17 /min 02/15/2024 Rahat Fernandez 02/15/2024 09:09:36 AM EDT > Blood pressure diastolic 79 mm Hg 02/15/2024 Carlota Syed 02/15/2024 09:09:36 AM EDT > Oximetry 99 % 02/15/2024 Jim Carlota 02/15/2024 09:09:36 AM EDT > Height-cm 167.64 cm 02/15/2024 Jim Carlota 02/15/2024 09:09:36 AM EDT > Weight-kg 67.9 kg 02/15/2024 Jim Carlota 02/15/2024 09:09:36 AM EDT > Height 66 in 02/15/2024 Jim Carlota 02/15/2024 09:09:36 AM EDT > Blood pressure systolic 124 mm Hg 02/15/2024 Juana younger Carlota 02/15/2024 09:09:36 AM EDT > Weight 149.7 lbs 02/15/2024 Jim Carlota 02/15/2024 09:09:36 AM EDT > BMI 24.16 kg/m2 02/15/2024 Carlota Fernandez 02/15/2024 09:09:36 AM EDT > Encounters Encounter Location Date Provider Diagnosis Main [address] [place] , [place] [id number] 02/15/2024 Concetta Bernal Wellness examination Z00.00 ; BMI 24.0-24.9, adult Z68.24 ; Dietary counseling Z71.3 ; Exercise counseling Z71.82 ; Never smoked any substance Z78.9 ; Encounter for screening mammogram for malignant neoplasm of breast Z12.31 and Need for hepatitis C screening test Z11.59 Assessments Encounter Date Diagnosis (ICD Code) Assessment Notes Treatment Notes Treatment Clinical Notes Section Notes 02/15/2024 Wellness examination (ICD-10 - Z00.00) Preventative care reviewed with pt as above. 02/15/2024 BMI 24.0-24.9, adult (ICD-10 - Z68.24) 02/15/2024 Dietary counseling (ICD-10 - Z71.3) 02/15/2024 Exercise counseling (ICD-10 - Z71.82) 02/15/2024 Never smoked any substance (ICD-10 - Z78.9) 02/15/2024 Encounter for screening mammogram for malignant neoplasm of breast (ICD-10 - Z12.31) 02/15/2024 Need for hepatitis C screening test (ICD-10 - Z11.59) Plan Of Treatment No Information Insurance Providers Payer Name Payer Address Payer Phone Subscriber Number Group Number Insured Name Patient Relationship to Insured Coverage Start Date Coverage End Date Jennifer bs [address] [place], [place] [phone] [id number] Corrina Suazo Self - patient is the insured 3 Medical (General) History Medical History History ICD Code Hyperlipemia E78.5 Kidney calculus N20.0 hsv seropositive Surgical History Surgery Date(Month/Year) Ectopic (2) 2000, 1994 [place] Teeth Removal 1984 Tonsillectomy 1974
--- OUTSIDE RECORDS SUMMARY | 2025-01-27 08:56 | XMS_ITS | Clinical Summary ---
Author Organization [facility] Address [address] [place] [address] Care Team Providers Care Senior It Specialist Name Role Phone Unallocated, Noms Provider Primary Care Provi julieta Allergies Active Allergy Reactions Criticality Noted Date Comments Moxifloxacin GI intolerance 07/16/2018 Penicillins Rash Low 07/16/2018 Medications atorvastatin (Lipitor) 20 MG tablet Take 20 mg by mouth Daily Active valACYclovir (Valtrex) 500 MG tabletIndication s:History of herpes genitalis Take 1 tablet (500 mg) by mouth twice daily for 3 days. 6 tablet 5 09/12/2024 Active Active Problems No known active problems Encounters Date Type Department Care Team Description 01/17/2025 3:00 PM EDT Ancillary Procedure [facility] [address] [facility] [address] [place] [id number] Breast cancer screening by mammogram 01/17/2025 Travel 01/02/2025 4:15 PM EDT Office Visit [facility] [address] [place] [address] Santino Eli DPM Ulcer of left foot, limited to breakdown of skin (CMS/HCC) (Primary Dx) 01/02/2025 [facility] [address] [place] [address] Santino Eli DPM 01/02/2025 Travel 12/30/2024 Travel 12/14/2024 9:15 AM EDT Office Visit [facility] [address] [place] [phone] Santino Eli, SLIM Ulcer of left foot, limited to breakdown of skin (CMS/HCC) (Primary Dx) 12/14/2024 Bamboo flowsheet [facility] [address] [place] [address] Santino Eli DPM 12/14/2024 Travel 12/13/2024 Travel from Last 3 Months Immunizations Immunization Administration Dates Next Due Influenza Whole 06/23/2011,06/25/2009 Influenza, Injectable, MDCK, preservative free 1 Influenza, injectable, MDCK, preservative free, quadrivalent 06/12/2023 Influenza, injectable, quadrivalent, preservativ e free 06/01/2021,05/15/2018 Influenza, recombinant, quad rivalent, injectable, preservative free 06/09/2020 Influenza, seasonal, injectable, preservative fr ee 06/12/2014 Influenza, seasonal, intradermal, preservative f ree 06/03/2019 MMR 04/29/2024 Tdap 09/13/2021 Zoster, Recombinant 11/29/2022,09/13/2021 Family History Medical History Relation Name Comments Coronary artery disease Father Hyperlipidemia Father Hypertension Father Uterine cancer Mother Leukemia Mother's Sister Coronary artery disease Other mult iple paternal relatives Heart attack Paternal Grandfather Migraines Sister Relation Name Status Comments Father Alive Mother Alive Mother's Sister Other Paternal Grandfather Sister Social History Tobacco Use Types Packs/Day Years Used Date Smoking Tobacco: Never Smokeless Tobacco: Never Tobacco Cessation:Counseling Given: Not Answered Alcohol Use Standard Drinks/Week Comments Yes 0 (1 standard drink = 0.6 oz pur e alcohol) Caffeine: 1-2 cups/day Comments No Sex and Gender Information Value Date Recorded Sex Assigned at Female 04/05/2023 6:38 PM EDT Legal Sex Female 7:33 PM EDT Gender Identity Female 11/19/2022 7:33 PM EDT Sexual Orientation Straight 04/05/2023 6: 38 PM EDT Last Filed Vital Signs Vital Sign Reading Time Taken Comments Blood Pressure 130/80 04/06/2023 5:05 PM EDT Pulse - - Temperature - - Respiratory Rate - - Oxygen Saturation - - Inhaled Oxygen Concentration - - Weight 68 kg (150 lb) 01/02/2025 4:22 PM EDT Height 167.6 cm (5' 6 ) 01/02/2025 4:22 PM EDT Body Mass Index 24.21 01/02/2025 4:22 PM EDT Plan of Treatment Upcoming Encounters Date Type Department Care Team (Late st Contact Info) Description 09/18/2025 6:00 PM EST Office Visit [facility] [address] [place] [address] Vaishnavi Vidal, ELAINEM [address] [place] [address] Health Maintenance Due Date Last Done Comments CT Colonography 1968 FIT-DNA 1968 FIT 1968 FOBT 1968 Sigmoidoscopy 1968 Pap Smear 1989 Influenza Vaccine (Season Ended) 2025 06/12/2023, 06/01/2021, 06/09/2020, Additional history exists Mammogram 01/17/2026 01/17/2025, 04/0 03/2023, 05/17/2021, Additional history exists Cervical Cancer Screening 04/07/2028 HPV/Cotest 04/07/2028 04/07/2023, 10/18/2018 Colonoscopy 07/19/2028 07/19/2018 Colorectal Cancer Screening 07/19/2028 Procedures Procedure Name Priority Date/Time Associated Diagnosis Comments BI MAMMOGRAM SCREENING TOMOSYNTHESIS BILATERAL Routine 01/17/2025 3:08 PM EDT Breast cancer screening by mammogram THINPREP PAP AND HPV MRNA E6/E7 W/RFL HPV 16,18/45 Routine 04/07/2023 8:12 AM EDT Screening for cervical cancer COLONOSCOPY Routine 07/19/2018 12:00 PM EST from Last 3 Months or Most Recently Relevant to Health Maintenance Results * Bilateral screening mammogram with tomosynthesis [...] ELECTRONICALLY SIGNED BY: Austin Solis M.D. Vaishnavi Vidla CNM IMG BI PROCEDURES Final Resu lt * THINPREP PAP AND HPV MRNA E6/E7 W/RFL HPV 16,18/45 (04/07/2023 8:12 AM EDT) CLINICAL INFORMATION [facility] Comment:None given LMP [facility] Comment:NONE GIVEN PREV. PAP [facility] Comment:NONE GIVEN PREV. BX [facility] Comment:NONE GIVEN SOURCE [facility] Comment:None given STATEMENT OF ADEQUACY [facility] Comment:SATISFACTORY FOR SIENNA LUATION INTERPRETATION/RESU LT [facility] Comment: Cytology Results: Negative for intraepithelial lesion or malignancy. Atrophic pattern; predominantly parabasal cells COMMENT [facility] Comment: Parabasal cells in smears that lack maturation due to atrophy or other hormonal reasons cannot be differentiated from transformation zone cells. Accordingly, presence or absence of endocervical or transformation zone components cannot be reported in this patient. ROUSTABOUT PUSHER [facility] Comment: CMB, CT(ASCP) CT Screening Location: [facility], [address] [place] [address], [place] [address] (ALWAYS MESSAGE) [facility] Comment: EXPLANATORY NOTE: The Pap is a screening test for cervical cancer. It is not a diagnostic test and is subject to false negative and false positive results. It is most reliable when a satisfactory sample, regularly obtained, is submitted with relevant clinical findings and history, and when the Pap result is evaluated along with historic and current clinical information. HPV MRNA E6/E7 Not Detected Not Detected [facility] Comment: Methodology: Controls Operator Molded Goods-Mediated Amplification This assay detects E6/E7 viral messenger RNA (mRNA) from 14 high-risk HPV types (16,18,31,33,35,39,45,51,52,56,58,59,66,68). Cervical sources are required for HPV testing. If a vaginal source from a patient who has had a total hysterectomy with removal of cervix was submitted, please contact the testing laboratory for alternative testing options. For additional information, please refer to http://education.[employer]/faq/MNO564e5 (This link if provided for information/ educational purposes only.) 04/07/2023 8:12 AM EDT 04/08/2023 4:44 AM EDT Narrative Resulting Agency Comment Performing Organization Information Site ID: [id number] Name: [facility] Address: [address] [place] [address], [address] [place] [id number] Director: Paulino Andrews MD Vaishnavi Vidal CNM LAB BLOOD ORDERABLES Final R esult [facility] * Colonoscopy (07/19/2018 12:00 PM EST) Anatomical Region Laterality Modality Endoscopy 07/19/2018 12:0 0 PM EST Narrative 07/19/2018 12:00 PM EST PERFORMED AT [facility] LOCATION:[id number] Procedure Note CONVERSION, GENERIC - 01/21/2023 PERFORMED AT [facility] LOCATION:[id number] Frank Pickering ENDOSCOPY PROCEDURE ORDERABLES Final Result from Last 3 Months or Most Recently Relevant to Health Maintenance Insurance [employer] Care Teams Senior It Specialist Relationship Specialty Start Date End Date Unallocated, Noms Provider, [address] [place], [place] [id number] PCP - General Family Medicine 12/28/23
--- OUTSIDE RECORDS SUMMARY | 2025-01-27 08:56 | XMS_ITS | Encounter Summary ---
Author Organization [facility] Address [address] [facility] [place] [address] Care Team Providers Care Team Truck Driver Name Role Phone Diony Abby Thompson DO Unavailable [phone] Abby Vora DO Primary Care Provider Unallocated, Noms Provider Primary Care Provi julieta Encounter Details Date Type Department Care Team (Late st Contact Info) Description 02/05/2023 Abstract [facility] [address] [place] [address] Abby Vora, DO [address] [facility] [address] [place] [address] Social History Tobacco Use Types Packs/Day Years Used Date Smoking Tobacco: Never Assessed Comments Unknown Sex and Gender Information Value Date Recorded [...] EST Office Visit [facility] [address] [place] [address] Vaishnavi Vidal, CNM [address] [place] [address] documented as of this encounter Visit Diagnoses Not on filedocumented in this encounter Care Teams Team Truck Driver Relationship Specialty Start Date End Date Abby Vora DO [address] [facility] [address] [place] [phone] PCP - Jennifer [facility] 10/08/2209/06 Abby Vora, DO [address] [facility] [address] [place] [address] PCP - General Family Medicine 04/06/23 12/27/23 Unallocated, Noms Provider, [place] [address] PCP - General Family Medicine 12/28/23 documented as of this encounter
--- OUTSIDE RECORDS SUMMARY | 2025-01-27 08:56 | XMS_ITS | Encounter Summary ---
Author Organization [facility] Address [address] [place] [address] Care Team Providers Care Clerk Rating Name Role Phone Unallocated, Noms Provider Primary Care [facility] Encounter Details Date Type Department Care Team (Latest Contact Info) Description 01/17/2025 Travel Social History Tobacco Use Types Packs/Day Years [...] EST Office Visit [facility] [address] [place] [address] Vaishnavi Vidal, CNM [address] [place] [address] documented as of this encounter Visit Diagnoses Not on filedocumented in this encounter Care Teams Clerk Rating Relationship Specialty Start Date End Date Unallocated, Noms Provider, [address] [place] [address] PCP - General Family Medicine 12/28/23 documented as of this encounter
--- OUTSIDE RECORDS SUMMARY | 2025-01-27 08:56 | XMS_ITS | Clinical Summary ---
Author Organization [facility] Address [id number] [place] [address] Care Team Providers Care Sequencing Machine Operator Name Role Phone Frank Pickering MD Primary Care Provider [phone] Allergies Active Allergy Reactions Criticality Noted Date Comments Moxifloxacin Vomiting 07/16/2018 Penicillins Rash Low 07/16/2018 Medications ZINC ORAL Take by mouth 2 (two) times a day. Active fexofenadine (BON) 180 mg tablet Take 180 mg by mouth daily. Active fluticasone (FLONASE) 50 mcg/actuation nasal spray Administer 1 spray into each nostril as needed for rhinitis. Active Active Problems Problem Noted Date Diagnosed Date Colon cancer screening 2018 Family History Medical History Relation Name Comments Coronary artery disease Father Heart disease Father Hypertension Father Leukemia Maternal Aunt Breast cancer Mother Uterine cancer Mother Heart disease Paternal Grandfather Migraines Sister Relation Name Status Comments Brother Alive Father Alive Maternal Aunt Mother Alive Paternal Grandfather Sister Alive Social History Tobacco Use Types Packs/Day Years Used Date Smoking Tobacco: Never Smokeless Tobacco: Never Alcohol Use Standard Drinks/Week Comments Yes 0 (1 standard drink = 0.6 oz pur e alcohol) socailly Childcare Answer Date Recorded Childcare Unknown 02/16/2019 Employment Answer Date Recorded Employment Unknown 02/16/2019 Purpose - Life Answer Date Recorded Purpose and direction in life Unknown Comments No Sex and Gender Information Value Date Recorded Sex Assigned at Not on file Legal Sex Female 11:28 AM EDT Gender Identity Not on file Sexual Orientation Not on file Last Filed Vital Signs Vital Sign Reading Time Taken Comments Blood Pressure 92/55 07/19/2018 12:30 PM EST Pulse 67 07/19/2018 12:30 PM EST Temperature 36.6 C (97.9 F) 07/19/2018 9:35 AM EST Respiratory Rate 16 07/19/2018 11:33 AM EST Oxygen Saturation 94% 07/19/2018 11:33 AM EST Inhaled Oxygen Concentration - - Weight 67.1 kg (148 lb) 10/28/2018 3:37 PM EST Height 167.6 cm (5' 6 ) 10/28/2018 3:37 PM EST Body Mass Index 23.89 10/28/2018 3:37 PM EST Plan of Treatment Health Maintenance Due Date Last Done Comments Depression Screening 1980 Tobacco Screening 1980 Adult BMI Screening 1986 DTaP,Tdap and Td Vaccines (1 - Tdap) 1987 Pap Smear 1989 Zoster (Shingles) Vaccine (1 of 2) 2018 Influenza Vaccine 05/08/2025 Medical Devices Not on [place] [address] [place] [address] Care Teams Sequencing Machine Operator Relationship Specialty Start Date End Date Frank Pickering MD [address] [place], [place] [id number] PCP - General Family Medicine 08/28/17
--- OUTSIDE RECORDS SUMMARY | 2025-01-27 08:57 | XMS_ITS ---
Author Organization [facility] Address [address] [place] [address] Care Team Providers Care Medical Review Coordinator Name Role Phone Farnk Pickering Primary Care Provider [phone] Transplant Episode Kidney Potential Donor [facility] ([place], [place]) - [facility] Referred on 04/19/2018 Marked as Ineligible on 04/19/2018 Reason: Not a Candidate Kidney CoordinatorConversion Earth Science Professor Phone: N/A Fax: N/A Email: N/A Care Team Name Role Phone Fax Email Conversion Earth Science Professor Kidney Coordinator N/A N/A N/A Events Pre-Donation Referred: 04/19/2018
--- OUTSIDE RECORDS SUMMARY | 2025-01-27 08:57 | XMS_ITS | Clinical Summary ---
Author Organization [facility] Address [address] [place] [address] Care Team Providers Care Brick Grader Name Role Phone Frank Pickering Primary Care Provider [phone] Social History Tobacco Use Types Packs/Day Years Used Date Smoking Tobacco: Never Assessed Comments Unknown Sex and Gender Information Value Date Recorded Sex Assigned at Not on file Legal Sex Female 2:11 PM EDT Gender Identity Not on file Sexual Orientation Not on file Plan of Treatment Not on file Care Teams Brick Grader Relationship Specialty Start Date End Date Frank Pickering [address] [place] [address] PCP - General Family Medicine 04/21/18
== END 2025-01-27 08:55 | disposition home or self-care (01) ==
LOC: RAD 08:54
PROVIDERS: PCP Nurse Practitioner; Visit Provider Nurse Practitioner Family
DX: Z13.820 Encounter for screening for osteoporosis (principal); Z78.0 Asymptomatic menopausal state
CPT/HCPCS: 77080

== ENCOUNTER 2025-02-27 15:01 | Outpatient (OUT) | payer OTHER, SELFPAY ==
[2025-02-27 15:47] LABS: Alanine Aminotransferase 25 U/L (14-59); Albumin Globulin Ratio 1.1; Albumin Level 3.7 g/dL (3.4-5.0); Alkaline Phosphatase 99 U/L (46-116); Anion Gap 10.8; Aspartate Amino Transferase 20 U/L (15-37); BUN Creatinine Ratio 26.2; Bilirubin Total 0.4 mg/dL (0.2-1.0); Calcium 9.2 mg/dL (8.5-10.1); Carbon Dioxide 30.5 mmol/L (21.0-32.0); Chloride 107 mmol/L (98-107); Creatine Kinase 229 U/L (26-192); Estimated GFR (African America >60 (>=60 mL/min/1.73m^2); Estimated GFR (Non-African Ame >60 (>=60 mL/min/1.73m^2); Globulin 3.4 g/dL; Glucose 100 mg/dL (74-106); Potassium 4.3 mmol/L (3.5-5.1); Sodium 144 mmol/L (136-145); Total Protein 7.1 g/dL (6.4-8.2)
[2025-02-28 03:07] LABS: Vitamin B12 401 pg/mL (232-1245)
== END 2025-02-27 15:02 | disposition home or self-care (01) ==
LOC: LAB 15:03
PROVIDERS: PCP Nurse Practitioner Family; Visit Provider Nurse Practitioner Family
DX: M79.10 Myalgia, unspecified site (principal); Z87.39 Personal history of other diseases of the musculoskeletal system and connective tissue; R25.1 Tremor, unspecified
CPT/HCPCS: 36415; 80053; 82550; 82607